=== PATIENT | female | born 1960 | race Caucasian/White ===

== ENCOUNTER → 2018-01-09 07:08 | Outpatient (CLI) | payer OTHER, SELFPAY ==
--- NOTE | 2018-01-09 07:12 | BI_ITS ---
MAMMOGRAPHY - BILATERAL SCREENING REASON FOR EXAM: Female, 57 years old. Routine annual screening examination. PERTINENT HISTORY: Non-contributory. TECHNIQUE: Digital bilateral breast tiffany (3D mammographic acquisition) in the CC and MLO projections. 2-D mediolateral oblique (MLO) and craniocaudad (CC) views of both breasts were obtained. CAD: Full Field Digital Mammography with Computer Added Detection was performed. COMPARISON: Comparison is made with prior study dated November 18, 2016. FINDINGS: Breast Composition: The breasts are heterogeneously dense, which may obscure small masses. There are no dominant masses or suspicious calcifications. No other significant abnormalities are identified. There has been no significant change since the prior study. BI/SCREENING MAMM (CAD), BILAT IMPRESSION: Stable bilateral screening mammogram. Yearly follow-up mammogram recommended. (A) ASSESSMENT CATEGORY: BIRADS Category 1: Negative. A letter regarding these results will be sent to the patient by the facility within 30 days. Approximately 10% of breast cancers are not detected by mammography. A normal mammogram should not delay biopsy of a clinically suspicious abnormality. [id number] Electronically Signed: Max Randhawa MD at 8:54 EST Tel [phone], Service support ,
[2018-01-15 11:46] LABS: HPV APTIMA, High Risk Negative (Negative)
== END ==
PROVIDERS: Referring Provider Nurse Practitioner Women's Health; Visit Provider Nurse Practitioner Women's Health
DX: Z12.4 Encounter for screening for malignant neoplasm of cervix (principal); Z12.31 Encounter for screening mammogram for malignant neoplasm of breast
CPT/HCPCS: 77063; 77067; 87624; 88175; G0145

== ENCOUNTER → 2020-01-16 16:17 | Outpatient (CLI) | payer BC, SELFPAY ==
[2020-01-08 13:41] VITALS: BMI 25.4
--- NOTE | 2020-01-16 16:18 | BI_ITS ---
MAMMOGRAPHY - BILATERAL SCREENING REASON FOR EXAM: Female, 59 years old. Routine annual screening examination. PERTINENT HISTORY: Non-contributory. TECHNIQUE: Digital bilateral breast rbuen (3D mammographic acquisition) in the CC and MLO projections. 2-D mediolateral oblique (MLO) and craniocaudad (CC) views of both breasts were obtained. CAD: Full Field Digital Mammography with Computer Added Detection was performed. COMPARISON: Comparison is made with prior study dated 01/09/2018 and 11/18/2016. FINDINGS: Breast Composition: The breasts are heterogeneously dense, which may obscure small masses. There are no dominant masses or suspicious calcifications. No other significant abnormalities are identified. There has been no significant change since the prior study. BI/SCREEN MAMM (CAD) W/RUBEN BILAT IMPRESSION: Stable bilateral screening mammogram. Yearly follow-up mammogram recommended. (A) ASSESSMENT CATEGORY: BIRADS Category 1: Negative. A letter regarding these results will be sent to the patient by the facility within 30 days. Approximately 10% of breast cancers are not detected by mammography. A normal mammogram should not delay biopsy of a clinically suspicious abnormality. [id number] Electronically Signed: Max Randhawa, at 8:10 EST , Service support ,
== END ==
PROVIDERS: PCP Internal Medicine; Referring Provider Nurse Practitioner Women's Health; Visit Provider Nurse Practitioner Women's Health
DX: Z12.31 Encounter for screening mammogram for malignant neoplasm of breast (principal)
CPT/HCPCS: 77063; 77067

== ENCOUNTER → 2021-01-27 07:35 | Outpatient (CLI) | payer BC, SELFPAY ==
--- NOTE | 2021-01-27 07:37 | BI_ITS ---
MAMMOGRAPHY - BILATERAL SCREENING REASON FOR EXAM: Female, 60 years old. Routine annual screening examination. PERTINENT HISTORY: Non-contributory. TECHNIQUE: Digital bilateral breast ruben (3D mammographic acquisition) in the CC and MLO projections. 2-D mediolateral oblique (MLO) and craniocaudad (CC) views of both breasts were obtained. CAD: Full Field Digital Mammography with Computer Added Detection was performed. COMPARISON: Comparison is made with prior study dated 01/16/2020 and 01/09/2018. FINDINGS: Breast Composition: The breasts are heterogeneously dense, which may obscure small masses. There are no dominant masses or suspicious calcifications. No other significant abnormalities are identified. There has been no significant change since the prior study. BI/SCRN MAMM (CAD)W/RUBEN BILAT IMPRESSION: Stable bilateral screening mammogram. Yearly follow-up mammogram recommended. (A) ASSESSMENT CATEGORY: BIRADS Category 1: Negative. A letter regarding these results will be sent to the patient by the facility within 30 days. Approximately 10% of breast cancers are not detected by mammography. A normal mammogram should not delay biopsy of a clinically suspicious abnormality. [id number] Electronically Signed: Max Randhawa MD at 8:51 EST , Service support ,
== END ==
PROVIDERS: PCP Internal Medicine; Referring Provider Nurse Practitioner Women's Health; Visit Provider Nurse Practitioner Women's Health
DX: Z12.31 Encounter for screening mammogram for malignant neoplasm of breast (principal)
CPT/HCPCS: 77063; 77067

== ENCOUNTER → 2022-04-13 | Outpatient (CLI) | payer BC, SELFPAY ==
[2022-04-20 20:28] LABS: HPV APTIMA, High Risk Negative (Negative)
== END | disposition home or self-care (01) ==
LOC: LABSPEC 10:44
PROVIDERS: PCP Internal Medicine; Referring Provider Nurse Practitioner Women's Health; Visit Provider Nurse Practitioner Women's Health
DX: Z12.4 Encounter for screening for malignant neoplasm of cervix (principal)
CPT/HCPCS: 87624; 88175; G0145

== ENCOUNTER → 2022-07-18 | Outpatient (CLI) | payer BC, SELFPAY ==
--- NOTE | 2022-07-18 07:49 | BI_ITS ---
MAMMOGRAPHY - BILATERAL SCREENING REASON FOR EXAM: Female, 62 years old. Routine annual screening examination. PERTINENT HISTORY: Non-contributory. TECHNIQUE: Digital bilateral breast ruben (3D mammographic acquisition) in the CC and MLO projections. 2-D mediolateral oblique (MLO) and craniocaudad (CC) views of both breasts were obtained. CAD: Full Field Digital Mammography with Computer Added Detection was performed. COMPARISON: Mammogram from January 27, 2021, January 16, 2020. FINDINGS: Breast Composition: The breasts are heterogeneously dense, which may obscure small masses. There are no dominant masses or suspicious calcifications. No other significant abnormalities are identified. There has been no significant change since the prior study. BI/SCRN MAMM (CAD)W/RUBEN BILAT IMPRESSION: Stable bilateral screening mammogram. Yearly follow-up mammogram recommended. (A) ASSESSMENT CATEGORY: BIRADS Category 1: Negative. A letter regarding these results will be sent to the patient by the facility within 30 days. Approximately 10% of breast cancers are not detected by mammography. A normal mammogram should not delay biopsy of a clinically suspicious abnormality. Electronically Signed: Kvng Langston MD at 14:31 EDT ,
== END | disposition home or self-care (01) ==
LOC: OPBI 07:48
PROVIDERS: PCP Internal Medicine; Referring Provider Obstetrics & Gynecology; Visit Provider Obstetrics & Gynecology
DX: Z12.31 Encounter for screening mammogram for malignant neoplasm of breast (principal)
CPT/HCPCS: 77063; 77067

== ENCOUNTER → 2024-05-21 | Outpatient (CLI) | payer BC, SELFPAY ==
--- NOTE | 2024-05-21 12:30 | BI_ITS ---
EXAM: PROCEDURE: MA Mammogram Digital Screen CLINICAL HISTORY: Screening COMPARISON: Mammogram study dated 07/18/2022 TECHNIQUE: A bilateral screening mammogram was obtained with MLO and CC views of both breasts with digital breast tomosynthesis. BREAST CANCER RISK ASSESSMENT: Does not appear to have been calculated. FINDINGS: No suspicious masses, suspicious calcifications or other suspicious mammogram findings are seen in either breast. Benign-appearing macrocalcifications are seen in the left breast. CONCLUSION: Right Breast: BI-RADS category 1, negative. Left Breast: BI-RADS category 2, benign findings Breast Composition: The breasts are heterogeneously dense, which may obscure small masses. Recommendation: Annual screening mammography Thank you for referring your patient to the [facility], if you have any questions, please call us at the performing site listed at the top of the report. [facility] , [facility] , [facility] and [facility] . Reading Location: [id number]
== END | disposition home or self-care (01) ==
LOC: OPBI 12:22
PROVIDERS: PCP Physician Assistant; Referring Provider Nurse Practitioner Women's Health; Visit Provider Nurse Practitioner Women's Health
DX: Z12.31 Encounter for screening mammogram for malignant neoplasm of breast (principal)
CPT/HCPCS: 77063; 77067

== ENCOUNTER 2024-08-15 05:25 | Day surgery (SDC) | payer BC, SELFPAY ==
--- NOTE | 2024-08-14 15:04 | PAT.ANESEVAL ---
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 When Was Last Pacemaker Check QUESTION #4 FULL TEXT: You/Your Family Experience fever (hyperthermia) with Anesthesia Last Oral Intake Last Oral intake: Last Oral Intake NPO since Meds taken in AM with sips of water? 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 - seam steamer: PONV - seam steamer Female Yes 08/13/24 13:58 HX of Motion Sickness No 08/13/24 13:58 HX of N/V After Surgery No 08/13/24 13:58 Non-Smoker Yes 08/13/24 13:58 Duration of Surgery greater No 08/13/24 13:58 than 60 minutes Number of Risk Factors 2 08/13/24 13:58 PONV Score Moderate Risk 08/13/24 13:58 Height & Weight Height & Weight: Anesthesia: Height & Weight Height 5 ft 8 in 05/21/24 13:08 Respiratory Assessment Respiratory Assessment - seam steamer: Respiratory Tract Infection Hx - seam steamer Hx Respiratory Tract Infection No 08/13/24 13:58 STOP Sleep Apnea STOP Sleep Apnea - seam steamer: STOP Sleep Apnea - seam steamer Hx Hypertension Yes: CONTROLLED WITH MEDS 08/13/24 13:58 Hx Sleep Apnea No 08/13/24 13:58 CPAP BIPAP Do you snore loudly (louder No 08/13/24 13:58 than talking or can be heard Do you often feel tired/ No 08/13/24 13:58 fatigued/ sleepy during daytime? Has anyone observed you stop No 08/13/24 13:58 breathing during sleep? STOP Results Negative 08/13/24 13:58 QUESTION #5 FULL TEXT : Do you snore loudly (louder than talking or can be heard through closed doors)? Tobacco Use History Tobacco Use History - seam steamer: Tobacco Use History - seam steamer Tobacco Use Smoking Status Never smoker 08/13/24 13:58 Hx Tobacco Use No 08/13/24 13:58 Years Smoking Packs Smoked per Day Smoking Cessation Date was within the last 15 years Hx Smoking Cessation Date Hx Smoking Cessation Counseling Hematologic Medial History Hematologic Hx - seam steamer: Hematologic Medical Hx - rn clinical documentation Hx of Blood Transfusion No 08/13/24 13:58 Hx of Transfusion in last 3 No 08/13/24 13:58 Months Date of Last Transfusion (if within last 3 months) Ever experience any problems No 08/13/24 13:58 with transfusion(s)? Specify any problems Hx of Preganancy in last 3 No 08/13/24 13:58 Months Nurse Filling Out Transfusion [id number] 08/13/24 13:58 & Questions: Date: 08/13/24 08/13/24 13:58 Time: 14:02 08/13/24 13:58 Patient unable to answer at this time (ie. confused, unrespo /Reproduction History /Reproductive History - seam steamer: /Reproductive Hx- seam steamer Hx Now No 08/13/24 13:58 Gestational Age (in weeks): EDC: Hx Hx Para Hx Section SAB No 08/13/24 13:58 [facility] Medical History (Updated 08/13/24 @ 14:05 by Shady Olivia) History of stress test RBBB Heart murmur History of abnormal cervical Pap smear Home Medications ?Medication ?Instructions ?Recorded ?Last Taken ?Type elderberry fruit 350 mg capsule 700 mg PO DAILY 04/13/22 Unknown History lactobacillus combination no.9 4 4,000 mmu cells PO DAILY 04/13/22 Unknown History billion cell capsule (Adult 50 Plus Probiotic) estradiol 0.01% (0.1 mg/gram) See Rx Instructions vaginal 05/21/24 Unknown Rx vaginal cream (Estrace) .COMPLEX #42.5 grams losartan 50 mg tablet 50 mg PO QHS 05/21/24 Unknown History ascorbic acid (vitamin C) 250 mg 500 mg PO QDAY 06/04/24 Unknown History tablet Allergy/AdvReac Type Severity Reaction Status Date / Time meperidine (From Demerol) AdvReac hives Verified 08/13/24 13:56 Sulfa (Sulfonamide AdvReac hives Verified 08/13/24 13:56 Antibiotics) Family History Mother Cancer pancreatic Father Cancer lymphoma Surgical History History of tonsillectomy Hx of appendectomy Hx of unilateral salpingectomy History of left oophorectomy Social History household members: spouse number of children: 3 current occupational status: retired history of recent travel: Yes sexually active: Yes Smoking Status: Never smoker alcohol intake: never substance use type: does not use what type of physical activity do you participate in: walking and bicycling seatbelt use: always do you feel safe at home: Yes additional social history: -mary Audit: Pertinent Findings Pertinent Findings EKG Perinent findings: May 31, 2023. Normal sinus rhythm. Right bundle branch block. No change from 2019. Recommendation Anesthesia Recommendation Anesthesia recommendation: OPTIMIZED for anesthesia
[2024-08-15] VITALS (7 sets, daily range): BP systolic 101–143; BP diastolic 50–67; PULSE 63–70; RESP 16–18; TEMP 36.1–36.7; O2SAT 100; BMI 26.6
--- OUTSIDE RECORDS SUMMARY | 2024-08-15 05:28 | XMS RPT_ITS | CCD ---
Author Organization [facility] Care Team Providers Care Weaving Instructor Name Role Phone Graciela Rebollar NP Unavailable Geovanni Paez Primary Care Provider [phone] Geovanni Paez Primary Care Provider Alexis Foreman Primary Care Provider [phone] Dr. Geovanni Paez Primary Care Provider Dr. Geovanni Paez Referring Provider RINA Rebollar NP Attending Provider Dr. Geovanni Paez Primary Care Provider Dr. Geovanni Paez Referring Provider RINA Rebollar NP Attending Provider Alexis Morgan Primary Care Provider Fely Rice Primary Care Provider Fely Rice Primary Care Provider [phone] SABINO, SILVIA L Attending Unavailable BA, FELY Primary Care Unavailable SABINO, SILVIA L Referring Unavailable BA, FELY Primary Care Unavailable SABINO, SILVIA L Attending Unavailable SABINO, SILVIA L Referring Unavailable SABINO, SILVIA L Attending Unavailable BA, FELY Primary Care Unavailable SABINO, SILVIA L Referring Unavailable SABINO, SILVIA L Attending Unavailable BA, FELY Primary Care Unavailable SABINO, SILVIA L Referring Unavailable SABINO, SILVIA L Attending Unavailable BA, FELY Primary Care Unavailable SABINO, SILVIA L Referring Unavailable SABINO, SILVIA L Attending Unavailable BA, FELY Primary Care Unavailable SABINO, SILVIA L Referring Unavailable BA, FELY Primary Care Unavailable SABINO, SILVIA L Attending Unavailable SABINO, SILVIA L Referring Unavailable SABINO, SILVIA L Referring Unavailable BA, FELY Primary Care Unavailable SABINO, SILVIA L Attending Unavailable SABINO, SILVIA L Referring Unavailable BA, FELY Primary Care Unavailable SABINO, SILVIA L Attending Unavailable BA, FELY Primary Care Unavailable SABINO, SILVIA L Admitting Unavailable SABINO, SILVIA L Attending Unavailable SABINO, SILVIA L Referring Unavailable TYRONE, HI Attending Unavailable TYRONE, HI Referring Unavailable BA, FELY Primary Care Unavailable BA, FELY Primary Care Unavailable SABINO, SILVIA L Attending Unavailable SABINO, SILVIA L Referring Unavailable HANS, ALEXIS O Primary Care Unavailable SABINO, SILVIA L Attending Unavailable SABINO, SILVIA L Referring Unavailable HANS, ALEXIS O Primary Care Unavailable TYRONE, HI Attending Unavailable TYRONE, HI Referring Unavailable HANS, ALEXIS O Primary Care Unavailable TYRONE, HI Attending Unavailable TYRONE, HI Referring Unavailable HANS, ALEXIS O Primary Care Unavailable TYRONE, HI Attending Unavailable SELF, SELF Referring Unavailable TYRONE, HI Attending Unavailable SELF, SELF Referring Unavailable BA, FELY Primary Care Unavailable TYRONE, HI Referring Unavailable TYRONE, HI Attending Unavailable FELY BA Primary Care Unavailable Fely Ba PA-C Primary Care Provid er FELY BA Primary Care Unavaila CONSUELO Diallo Attending Unavailable Smooth CARPENTER PACKING-C, Graciela Attending Provider Smooth NANCECGraciela Referring Provider Dr. Fely Ba PA-C Primary Care Provider Dr. Geovanni Paez MD Referring Provider [phone] Fely Ba Primary Care Unavailable Kalia Santos Attending Unavailable Geovanni Paez Referring Unavailable Fely Ba Primary Care Unavailable Smooth CARPENTER PACKING, Graciela Attending Unavailable Geovanni Paez Referring Unavailable [place] CARPENTER PACKING, Graciela Referring Unavailable Smooth CARPENTER PACKING, Graciela Attending Unavailable Fely Ba Primary Care Unavailable Fely Ba Primary Care Unavailable Kalia Santos Attending Unavailable Allergies Allergy Classification Reported Allergen(s) Allergy Type Date of Onset Reaction(s) Facility (4 sources) sulfamethoxazole / trimethoprim drug allergy 11-19-19 17 [facility] (19 sources) Meperidine Drug Allergy 01-03-20 19 [facility] (9 sources) Sulfonamides (Antibiotic) Propensity to adverse reactions to drug 01-03-20 19 [facility] (13 sources) Sulfamethoxazole / Trimethoprim Drug Allergy 11-19-19 17 [facility] (4 sources) Sulfonamides (Antibiotic); Translations: [SULFA (SULFONAMIDE ANTIBIOTICS)] Propensity to adverse reactions 04-13-19 23 [facility] (8 sources) Sulfonamides (Antibiotic) Propensity to adverse reactions to drug 01-03-20 19 [facility] (4 sources) avocado oil Drug Allergy 05-31-19 24 Nausea and Vomiting [facility] (1 source) Meperidine Drug Allergy 05-22-19 [facility] (1 source) Sulfonamides (Antibiotic) Drug allergy (disorder) 05-22-19 [facility] Medications Current Medications Medication Drug Class(es) Dates Sig (Normalized) Sig (Original) acetaminophen 325 mg / HYDROcodone bitartrate 5 mg oral tablet (11 sources) Opioid Agonist Start: 06-28-2023 take 1-2 tablets by mouth every four to six hours as needed for pain hydroCODone-acetam inophen 5-325 MG tablet Indications: S/P right knee arthroscopy 1-2 tabs PO q4-6 hours PRN pain 30 tablet 06/28/2023 Active Start: 06-28-2023 End: 06-28-2023 take 1-2 tablets by mouth every four hours as needed 1-2 tablet, Oral, EVERY 4 HOURS NEEDED, Starting on Mon06/28/23 at 1030, Until Mon06/28/23 at 1529, Moderate Pain, Post-op/Post-Proc Start: 03-14-2019 take 1-2 tablets by mouth every four to six hours as needed for pain hydroCODone-acetaminophen 5-325 MG Tab tablet Indications: S/P left knee arthroscopy 1-2 tabs PO q4-6 hours PRN pain 40 tablet 03/14/2019 Active Start: 03-14-2019 End: 03-14-2019 take 1-2 tablets by mouth every four hours as needed hydroCODone-acetaminophen (NORCO) 5-325 MG per tablet 1-2 tablet Ascorbic Acid (3 sources) Vitamin C Ascorbic Acid (VITAMIN C PO) Take by mouth daily. Active calcium carbonate 1500 mg oral tablet (6 sources) Start: 04-13-2022 take 1 tablet by mouth once daily Calcium Carbonate (Calcium 600) 600 mg calcium (1,500 mg) tablet Active 600 mg PO DAILY April 13, 2022 1:00am Start: 01-09-2018 End: 04-13-2022 take 1 tablet by mouth twice daily Calcium Carbonate (Antacid (Calcium Carbonate)) 200 mg calcium (500 mg) tablet,chewable Discontinued 200 mg PO TWICE A DAY January 09, 2018 1:00am April 13, 2022 10:20am calcium carbonate 1250 mg / cholecalciferol 200 unt oral tablet (12 sources) Vitamin D calcium-vitamin D 500-200 MG-UNIT Tab tablet Take by mouth daily. Active ciprofloxacin 3 mg/ml / dexamethasone 1 mg/ml otic suspension (1 source) Corticosteroid, Quinolone Antimicrobial Start: 03-06-2024 End: 03-13-2024 ciprofloxacin-dexamethaso ne (Ciprodex) otic suspension Indications: Acute swimmer's ear of left side Administer 4 drops into the left ear 2 times a day for 7 days. 7.5 mL 03/06/2024 03/13/2024 Active ELDERBERRY FRUIT (3 sources) Start: 04-13-2022 Elderberry Fruit 350 mg capsule Active mg PO April 13, 2022 1:00am Start: 04-13-2022 Elderberry Fru it Active MG PO April 13, 2022 1:00am Start: 04-13-2022 Elderberry Fru it Active MG PO April 13, 2022 12:00am Elderberry preparation (3 sources) ELDERBERRY PO Ta ke by mouth daily. Active estradiol 0.1 mg/ml vaginal cream (10 sources) Estrogen Start: 01-13-2021 End: 05-21-2024 Estradiol (Estrace) 0.01 % (0.1 mg/gram) cream Active 0 VAGINAL .COMPLEX 42.5 May 21, 2024 1:10pm pea sized amount VAGINAL 2-3 times a week; Start: 01-13-2021 End: 03-03-2022 Estradiol (Estrace) 0.01 % ( 0.1 mg/gram) cream Active 0 VAGINAL .COMPLEX 42.5 March 03, 2022 12:35pm pea sized amount VAGINAL 2-3 times a week; Start: 01-08-2020 End: 01-13-2021 Estradiol (Estrace) 0.01 % ( 0.1 mg/gram) cream Discontinued 0 VAGINAL .COMPLEX 42.5 January 08, 2020 1:00am January 13, 2021 10:52am pea sized amount VAGINAL every other day X 4 weeks then twice a week; Start: 01-08-2020 End: 01-13-2021 Estradiol (Estrace) 0.01 % ( 0.1 mg/gram) cream Discontinued 0 VAGINAL .COMPLEX 42.5 January 08, 2020 1:00am January 13, 2021 10:52am pea sized amount VAGINAL every other day X 4 weeks then twice a week; hydrocortisone 10 mg/ml / neomycin 3.5 mg/ml / polymyxin b [id number] unt/ml otic suspension (11 sources) Aminoglycoside Antibacterial, Polymyxin-class Antibacterial, Corticosteroid Start: 03-07-2019 wbeyxauw-bcieznuru-nahfvsklf isone [id number] Suspension Indications: Acute otitis externa of right ear, unspecified type Place 4 drops in right ear 3 times daily. 1 Bottle 03/07/2019 Active Lactobacillus Combination No.9 (Adult 50 Plus Probiotic) 4 billion cell capsule (3 sources) Start: 04-13-2022 take 4 capsules by mouth once daily Lactobacillus Combination No.9 (Adult 50 Plus Probiotic) 4 billion cell capsule Active 4000 NMA PO DAILY April 13, 2022 1:00am administer with a meal Start: 04-13-2022 take 4 capsules by m outh once daily Lactobacillus Combination No.9 (Adult 50 Plus Probiotic) 4 billion cell capsule Active 4000 MMU CELLS PO DAILY April 13, 2022 1:00am administer with a meal Start: 04-13-2022 take 4 capsules by m outh once daily Lactobacillus Combination No.9 (Adult 50 Plus Probiotic) 4 billion cell capsule Active 4000 MMU CELLS PO DAILY April 13, 2022 12:00am administer with a meal losartan potassium 50 mg oral tablet (1 source) Angiotensin 2 Receptor Shakir Start: 05-21-2024 take 1 tablet by mouth once daily Losartan 50 mg tablet Active 50 mg PO daily May 21, 2024 12:00am Magnesium (3 sources) MAGNESIUM PO Flash e by mouth daily. Active Melatonin (8 sources) MELATONIN PO Flash e by mouth. Active MELATONIN PO Flash e by mouth. 0 Active Completed/Discontinued Medications Medication Drug Class(es) Dates Sig (Normalized) Sig (Original) bupivacaine hydrochloride 5 mg/ml injectable solution (1 source) Amide Local Anesthetic Start: 03-14-2019 End: 03-14-2019 bupivacaine (MARCAINE) 0.5 % injection calcium (10 sources) Phosphate Binder, Calcium Start: 11-18-2016 End: 03-14-2019 CALCIUM PO calcium CALCIUM 250 MG CAPS CALCIUM [id number] Aster Alvarez MD 11-18-2016 [facility] ([id number]) 0 11/18/2016 03/14/2019 Discontinued (Medication Reconciliation (suppress cancel msg)) Start: 11-18-2016 CALCIUM PO aysha cium CALCIUM 250 MG CAPS CALCIUM [id number] Aster Alvarez MD 11-18-2016 [facility] ([id number]) 0 11/18/2016 Active Start: 11-18-2016 CALCIUM 250 MG CAPS CALCIUM [id number] Aster Alvarez MD Start: 11-18-2016 CALCIUM 250 MG CAPS CALCIUM [id number] Aster Alvarez MD calcium chloride 0.0014 meq/ml / potassium chloride 0.004 meq/ml / sodium chloride 0.103 meq/ml / sodium lactate 0.028 meq/ml injectable solution (2 sources) Start: 06-28-2023 End: 06-28-2023 Intravenous, at 75 mL/hr, CONTINUOUS, Starting on Mon06/28/23 at 0915, Until Mon06/28/23 at 1529, Pre-op/Pre-Proc Start: 03-14-2019 End: 03-14-2019 lactated ringers IV solution EPINEPHrine PF (ADRENALIN) 1 MG/ML 1 mg in lactated ringers 5,000 mL irrigation solution (1 source) Start: 03-14-2019 End: 03-14-2019 EPINEPHrine PF (ADRENALIN) 1 MG/ML 1 mg in lactated ringers 5,000 mL irrigation solution 10 ml lidocaine hydrochloride 10 mg/ml injection (1 source) Antiarrhythmic, Amide Local Anesthetic Start: 03-14-2019 End: 03-14-2019 lidocaine (XYLOCAINE) 10 mg/mL injection Multiple Vitamin (MULTI-VITAMIN) Tab (2 sources) Start: 12-22-2009 End: 03-07-2019 Multiple Vitamin (MULTI-VITAMIN) Tab Take by mouth. 0 12/22/2009 03/07/2019 Discontinued MULTIPLE VITAMINS-MINERALS (4 sources) Start: 11-18-2016 MULTIVITAMIN WOMEN 50+ TABS MULTIPLE VITAMINS-MINERALS [id number] Aster Alvarez MD Drug Treatment Unknown - unknown (1 source) No information available. 2 ml ondansetron 2 mg/ml injection (2 sources) Serotonin-3 Receptor Antagonist Start: 06-28-2023 End: 06-28-2023 take 4 mg intravenously every four hours as needed 4 mg, Intravenous, EVERY 4 HOURS NEEDED, Starting on Mon06/28/23 at 1030, Until Mon06/28/23 at 1529, Nausea / Vomiting, Post-op/Post-Proc Start: 03-14-2019 End: 03-14-2019 take 4 mg intravenous route every four hours as needed ondansetron 4mg/2ml (ZOFRAN) injection 4 mg Problems Active Problems Problem Classification Problem Date Documented Date Episodic/Chronic Joint disorders and dislocations; trauma-related (2 sources) Acute meniscal tear, medial; Translations: [Current tear of medial cartilage AND/OR meniscus of knee] Episodic Joint disorders and dislocations; trauma-related (4 sources) Tear of medial meniscus of knee; Translations: [Other tear of medial meniscus, current injury, right knee, initial encounter] Onset: 06-12-2023 04-24-2023 Episodic Menopausal disorders (7 sources) Atrophic vaginitis; Translations: [Postmenopausal atrophic vaginitis] Onset: 05-21-2024 04-13-2022 Chronic Comment on above: controlled with vagi nal estrogen cream Osteoarthritis (4 sources) Osteoarthritis of right knee joint; Translations: [Unilateral primary osteoarthritis, right knee] Onset: 06-12-2023 04-24-2023 Chronic Other ear and sense organ disorders (1 source) Impacted cerumen in left ear; Translations: [Impacted cerumen, left ear] 03-06-2024 Episodic Other ear and sense organ disorders (1 source) Acute otitis externa; Translations: [Swimmer's ear, left ear] 03-06-2024 Episodic Other ear and sense organ disorders (2 sources) Impacted cerumen, left ear; Translations: [Impacted cerumen, left ear] Onset: 03-06-2024 Episodic Other ear and sense organ disorders (2 sources) Swimmer's ear, left ear; Translations: [Swimmer's ear, left ear] Onset: 03-06-2024 Episodic Other ear and sense organ disorders (1 source) Acute otitis externa of right ear; Translations: [Acute otitis externa of right ear, unspecified type] Other ear and sense organ disorders (1 source) Impacted cerumen in left ear; Translations: [Impacted cerumen of left ear] Other non-traumatic joint disorders (2 sources) Arthropathy; Translations: [Other specified joint disorders, unspecified joint] Chronic Other non-traumatic joint disorders (1 source) Knee pain; Translations: [Acute pain of left knee] Episodic Other screening for suspected conditions (not mental disorders or infectious disease) (1 source) Encounter for screening mammogram for malignant neoplasm of breast; Translations: [Encounter for screening mammogram for malignant neoplasm of breast] Onset: 05-27-2024 Episodic Residual codes; unclassified (3 sources) History of arthroscopy of knee joint; Translations: [S/P left knee arthroscopy] Episodic Residual codes; unclassified (3 sources) History of arthroscopy of knee joint; Translations: [Other specified postprocedural states] 06-19-2023 Episodic Residual codes; unclassified (4 sources) Other specified postprocedural states; Translations: [Other specified postprocedural states] Onset: 07-17-2023 Episodic Unclassified (4 sources) Screening for malignant neoplasm of cervix ; Translations: [Encounter for screening for malignant neoplasm of cervix] Onset: 11-18-2016 11-18-2016 Unclassified (4 sources) Gynecologic examination ; Translations: [Encounter for gynecological examination (general) (routine) without abnormal findings] Onset: 11-18-2016 11-18-2016 Unclassified (4 sources) Screening mammography ; Translations: [Encounter for screening mammogram for malignant neoplasm of breast] Onset: 10-06-2016 10-06-2016 Unclassified (1 source) Preprocedural examination done; Translations: [Preoperative examination] Unclassified (1 source) Patient encounter status; Translations: [Routine general medical examination at a health care facility] Unclassified (1 source) Acute tear of medial meniscus of left knee; Translations: [Acute medial meniscus tear of left knee, initial encounter] Unclassified (1 source) Personal history of colon polyps, unspecified; Translations: [Personal history of colon polyps, unspecified] Onset: 07-08-2024 Past or Other Problems Problem Classification Problem Date Documented Date Episodic/Chronic Immunizations and screening for infectious disease (4 sources) Encounter for screening for human papillomavirus (HPV); Translations: [Encounter for screening for human papillomavirus (HPV)] Onset: 11-18-2016 11-18-2016 Episodic Other non-traumatic joint disorders (3 sources) Pain in right knee; Translations: [Pain in joint, lower leg] Onset: 03-10-2023 03-08-2023 Episodic Sprains and strains (4 sources) Sprain of right knee; Translations: [Sprain of unspecified site of right knee, initial encounter] Onset: 04-12-2023 03-10-2023 Episodic Results Test Name Value Interpretation Reference Range Facility Gastroenterology Visit Repor ton 06-04-2024 Gastroenterology Visit Report [facility] [address] [place] [address] OFFICE VISIT Date of Service: 06/04/24 MR#: [id number] Acct: [id number] Name: MAURICE AVILEZ Rep #: [id number] : 1960 Provider: Kalia Santos DO Age/Sex: 64/F Location: [facility] Status: Signed Intake Vital Signs 04/13/22 09:21 05/21/24 13:08 Height 5 ft 8 in 5 ft 8 in Intake Visit Reasons: Pre Colon Allergies meperidine (From Demerol) Adverse Reaction (Verified 05/21/24 13:09) hives Sulfa (Sulfonamide Antibiotics) Adverse Reaction (Verified 05/21/24 13:09) hives Medications ???Medication ???Instructions ???Recorded ???Confirmed ???Type calcium carbonate (Calcium 600) 600 mg PO DAILY 04/13/22 06/04/24 History elderberry fruit 350 mg capsule mg PO 04/13/22 06/04/24 History lactobacillus combination no.9 4 4,000 mmu cells PO DAILY 04/13/22 06/04/24 History billion cell capsule (Adult 50 Plus Probiotic) estradiol 0.01% (0.1 mg/gram) See Rx Instructions vaginal 06/04/24 Rx vaginal cream (Estrace) .COMPLEX #42.5 grams losartan 50 mg tablet 50 mg PO QDAY 05/21/24 06/04/24 Hi story ascorbic acid (vitamin C) 250 mg 500 mg PO QDAY 06/04/24 06/04/24 H istory tablet Nurse's Note: Pt was scheduled for colonoscopy on 08.15.24 at the end of their appt today. Reviewed prep instructions and which medications to hold prior to procedure with pt in office. A paper copy of miralax prep instructions were given to pt. Pt denies any questions or concerns at this time. [facility] Medical History (Updated 06/04/24 @ 11:[address] Motta Friend, DO) History of abnormal cervical Pap smear Surgical History History of tonsillectomy Hx of appendectomy Hx of unilateral salpingectomy History of left oophorectomy Family History Mother Cancer pancreatic Father Cancer lymphoma Social History household members: spouse number of children: 3 current occupational status: retired history of recent travel: Yes sexually active: Yes Smoking Status: Never smoker alcohol intake: never substance use type: does not use what type of physical activity do you participate in: walking and bicycling seatbelt use: always do you feel safe at home: Yes additional social history: -mary SLY HPI Details: MAURICE AVILEZ, is a 64 F who presents to the office today for initial consult. Her only PMH is stage 1 hypertension. This is controlled with medication. She wants to schedule a colonoscopy. Her las colonoscopy was in 2019 at [facility]. She uses probiotics on a daily bases to help with her bowel movements. *BGI established 06.04.24 pt report she is due for a colonoscopy; last scope was 5-6 years ago. Pt reports that since going through menopause she has had irregular bowel movements, pt reports a bm every other day or will sometimes skip two days. Pt reports abdominal cramping began last week. ROS Const Constitutional: No fatigue, fever(s) or weight change ENT ENT: No difficulty swallowing Gastro GI: Positive for abdominal pain, bloating, constipation and excessive flatus; No belching, change in bowel habits, change in stool character, coffee ground emesis, cramping, diarrhea, heartburn, difficulty swallowing, feeling full early, incontinent of stools, Vomiting blood/hematemesis, Blood in stool, loose stools, Black,tarry stools, nausea/dyspepsia, pain with swallowing, vomiting or other Musc Musculoskeletal: Positive for muscle cramps; No joint pain Skin Skin: No yellowing of the eye or itchy eyes Psych Psychiatric: No anxiety and No depression Endo Endocrine: No fatigue or weight change Aller/Imm Allergy/Immunologic: No itchy eyes Maged/Lymp Hematologic/Lymphatic: No easy bleeding or easy bruising Exam Const General: cooperative, healthy appearing, comfortable and no acute distress Nutritional Appearance: average body habitus and well nourished [facility] Head: normal to inspection Ears: hearing grossly normal bilaterally Nose: external nose normal Eyes Eyelids: eyelids normal Sclera: sclerae normal Neck Neck: normal visual inspection Chest Chest palpation inspection: normal inspection of the chest Resp Effort Inspection: normal respiratory effort Auscultation: Bilateral: Clear to Auscultation Cardio Palpation: normal PMI Rate: regular rate Rhythm: regular rhythm GI Inspection: normal to inspection Auscultation: normal bowel sounds Percussion: normal to percussion Palpation: no hepatosplenomegaly Assessment and Plan Assessment and Plan (1) Personal history of colonic polyps: Status: Acute Plan: She will undergo a surve (more content not included)... Normal [facility] Breast imaging reportOrdered By: Jesusita Turpin on 05-22-2024 Study report [facility] Imaging Services [address] [place] [address] SCRN MAMM (CAD)W/RUBEN BILAT MR#: [id number] Acct: [id number] Name: MAURICE AVILEZ Priscilla Rep #: [id number] : 1960 F 64 From: Bronson Turpin DO PCP: Fely Ba PA-C Status: REG CLI Study:SCRN MAMM (CAD)W/RUBEN BILAT Date of Exa m: 05/21/24 Exam# [id number] Ordering Dr: Graciela Rebollar NP EXAM: PROCEDURE: MA Mammogram Digital Screen CLINICAL HISTORY: Screening COMPARISON: Mammogram study dated 07/18/2022 TECHNIQUE: A bilateral screening mammogram was obtained with MLO and CC views of both breasts with digital breast tomosynthesis. BREAST CANCER RISK ASSESSMENT: Does not appear to have been calculated. FINDINGS: No suspicious masses, suspicious calcifications or other suspicious mammogram findings are seen in either breast. Benign-appearing macrocalcifications are seen in the left breast. CONCLUSION: Right Breast: BI-RADS category 1, negative. Left Breast: BI-RADS category 2, benign findings Breast Composition: The breasts are heterogeneously dense, which may obscure small masses. Recommendation: Annual screening mammography Thank you for referring your patient to the [facility], if you have any questions, please call us at the performing site listed at the top of the report. [facility] , [facility] , [facility] and [facility] . Reading Location: [id number] CC: RINA Rebollar; CHADWICK Ba ~ Dairy Helper: Signed [facility] [employer] Office Visit Reporton 05-21-2024 Bro[facility] [employer] Office Visit Report [facility] [address], [address] [place] [address] OFFICE VISIT Date of Service: 05/21/24 MR#: [id number] Acct: [id number] Name: MAURICE AVILEZ Rep #: [id number] : 1960 Provider: RINA dang Age/Sex: 64/F [place] [facility] [place]: Signed Intake Vital Signs 04/13/22 09:21 05/21/24 13:02 05/21/24 13:08 Height 5 ft 8 in 5 ft 8 in 5 ft 8 in Weight: 172 lb 2 oz BMI 26.2 BP 136/70 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) Chief Complaint: Annual Information And Referral Director Required: No Is patient in pain?: No Allergies meperidine (From Demerol) Adverse Reaction (Verified 05/21/24 13:09) hives Sulfa (Sulfonamide Antibiotics) Adverse Reaction (Verified 05/21/24 13:09) hives Medications ???Medication ???Instructions ???Recorded ???Confirmed ???Type calcium carbonate (Calcium 600) 600 mg PO DAILY 04/13/22 05/21/24 History elderberry fruit 350 mg capsule mg PO 04/13/22 05/21/24 History lactobacillus combination no.9 4 4,000 mmu cells PO DAILY 04/13/22 05/21/24 History billion cell capsule (Adult 50 Plus Probiotic) estradiol 0.01% (0.1 mg/gram) See Rx Instructions vaginal 05/21/24 Rx vaginal cream (Estrace) .COMPLEX #42.5 grams losartan 50 mg tablet 50 mg PO QDAY 05/21/24 05/21/24 Hi story Is last menstrual period known: No Post menopausal: Yes Patient : No : No PFSH Medical History History of abnormal cervical Pap smear Surgical History History of tonsillectomy Hx of appendectomy Hx of unilateral salpingectomy History of left oophorectomy Family History Mother Cancer pancreatic Father Cancer lymphoma Social History household members: spouse number of children: 3 current occupational status: retired history of recent travel: Yes sexually active: Yes Smoking Status: Never smoker alcohol intake: never substance use type: does not use what type of physical activity do you participate in: walking and bicycling seatbelt use: always do you feel safe at home: Yes additional social history: -mary History 3 Elective abortions Hx Para 3 Spontaneous abortions Hx # Term Pregnancies Ectopic pregnancies Hx # Pregnancies Multiple births # of living children Past Pregnancies Del. Date Name GA/Weeks Outcome Route Bth Weight [facility] 1981 Jacquelin Unknown 1984 Fani Unknown 1986 Nabila HPI Encounter for routine gynecological examination Details: MAURICE AVILEZ is a 64 year old who presents for annual exam. Denies concerns. Needs refill estradiol cream, uses 2 times a week Last PAP: 2022 History of abnormal PAP: remote abnormal Last mammogram: today History of abnormal mammogram: no Colon cancer screening: scheduled Other preventative health care screenings:[place]/Sh ilo Female Reproductive History Questions: metorrhagia: No, sexually active: Yes, dyspareunia: No and PCB: No Menopausal Treatment: Yes Vaginal Estrogen ROS Const Constitutional: Denies fatigue, weight gain or weight loss Cardio Card: Denies chest pain Resp Resp: Denies cough or dyspnea on exertion GI GI: Denies abdominal pain, bloating, change in stool character, constipation or vomiting : Reports as per HPI; Denies difficulty voiding, pelvic pain, urinary frequency, urinary incontinence, urinary urgency, vaginal discharge or vaginal pruritus Exam Const General: cooperative, healthy appearing, no acute distress and well developed Orientation: alert, oriented to person and oriented to place HENVT Head: normal to inspection Neck Neck: normal visual inspection Thyroid: thyroid normal Lymphatic: no lymphadenopathy noted Chest Breast inspection: normal inspection of the breasts and normal inspection of the axillae Breast palpation: normal palpation of the breasts, normal palpation of the axillae and no axillary lymphadenopathy Resp Effort Inspection: normal respiratory effort GI Palpation: soft, no masses and nontender Rectal Exam: deferred External Female Exam: normal external appearance and normal appearance of the urethra Urethra: normal appearance of the urethra and normal palpation Speculum Exam - Vagina: normal appearance of the vagina and normal vaginal discharge Speculum Exam - Cervix: normal appearance of the cervix Bimanual Exam- Vagina Uterus: normal bimanual exam, uterine size normal, uterine shape normal and non-tender Bimanual Exam- Adnexa, other: normal adnexae, n (more content not included)... Normal [facility] SCRN MAMM (CAD)W/RUBEN BILATo n 05-21-2024 SCRN MAMM (CAD)W/RUBEN BILAT [facility] Imaging Services [address] [place] [address] SCRN MAMM (CAD)W/RUBEN BILAT MR#: [id number] Acct: [id number] Name: MAURICE AVILEZ Rep #: [id number] : 1960 F 64 From: Jesusita Meier PCP: Fely Ba PA-C Status: REG CLI Study: SCRN MAMM (CAD)W/RUBEN BILAT Date of Exam: 04/28 07/21 Exam# [id number] Ordering Dr: Graciela Rebollar NP [employer] EXAM: PROCEDURE: MA Mammogram Digital Screen CLINICAL HISTORY: Screening COMPARISON: Mammogram study dated 07/18/2022 TECHNIQUE: A bilateral screening mammogram was obtained with MLO and CC views of both breasts with digital breast tomosynthesis. BREAST CANCER RISK ASSESSMENT: Does not appear to have been calculated. FINDINGS: No suspicious masses, suspicious calcifications or other suspicious mammogram findings are seen in either breast. Benign-appearing macrocalcifications are seen in the left breast. CONCLUSION: Right Breast: BI-RADS category 1, negative. Left Breast: BI-RADS category 2, benign findings Breast Composition: The breasts are heterogeneously dense, which may obscure small masses. Recommendation: Annual screening mammography Thank you for referring your patient to the [facility], if you have any questions, please call us at the performing site listed at the top of the report. [facility] , [facility] , [facility] and [facility] . Reading Location: [id number] CC: RINA Rebollar; CHADWICK Ba Dairy Helper: Signed [facility] Ear Cerumen Removalon 2024 SYEDA Bhandari 03/06/2024 11:29 AM Ear Cerumen Removal Performed by: SYEDA Bhandari Authorized by: SYEDA Bhandari Consent: Consent obtained: Verbal Consent given by: Patient Risks, benefits, and alternatives were discussed: yes Risks discussed: Infection, bleeding, pain, TM perforation, incomplete removal and dizziness Alternatives discussed: No treatment Axtell protocol: Procedure explained and questions answered to patient or proxy's satisfaction: yes Relevant documents present and verified: yes Test results available: no Imaging studies available: no Required blood products, implants, devices, and special equipment available: no Site/side marked: no Immediately prior to procedure, a time out was called: no Patient identity confirmed: Verbally with patient Procedure details: Location: L ear Procedure type: irrigation Procedure outcomes: cerumen removed Post-procedure details: Inspection: No bleeding, TM intact and macerated skin Hearing quality: Improved Procedure completion: Tolerated well, no immediate complications [facility] Work Phone: [facility] Work Phone: MR Knee - right WO contrasto n 04-12-2023 IMPRESSION: 1. There is an oblique longitudinal undersurface tear in the body of the medial meniscus seen on coronal image 21. Mild reactive soft tissue inflammation around the MCL seen. Medial compartment cartilage appears maintained. Mild subcutaneous swelling over the medial knee also seen. 2. Moderate joint effusion seen. 3. Subtle areas of intermediate grade chondral fissuring in the medial, lateral, and central aspects of the patella seen. RADIOLOGY EXAM: MRI KNEE RIGHT WITHOUT CONTRAST REASON FOR EXAM: Knee pain x3 months TECHNIQUE: Multiplanar, multisequence imaging of the right knee without IV contrast. COMPARISON: None. FINDINGS: There is an oblique longitudinal undersurface tear in the body of the medial meniscus seen on coronal image 21. Mild reactive soft tissue inflammation around the MCL seen. Medial compartment cartilage appears maintained. Mild subcutaneous swelling over the medial knee also seen. Moderate joint effusion seen. ACL and PCL are intact. Quadriceps and patellar tendon are intact. Lateral meniscus and lateral compartment cartilage appear maintained. LCL complex appears intact. No fracture or stress response. Subtle areas of intermediate grade chondral fissuring in the medial, lateral, and central aspects of the patella seen. RADIOLOGY Wolf Bolanos MD - 04/12/2023 EXAM: MRI KNEE RIGHT WITHOUT CONTRAST REASON FOR EXAM: Knee pain x3 months TECHNIQUE: Multiplanar, multisequence imaging of the right knee without IV contrast. COMPARISON: None. FINDINGS: There is an oblique longitudinal undersurface tear in the body of the medial meniscus seen on coronal image 21. Mild reactive soft tissue inflammation around the MCL seen. Medial compartment cartilage appears maintained. Mild subcutaneous swelling over the medial knee also seen. Moderate joint effusion seen. ACL and PCL are intact. Quadriceps and patellar tendon are intact. Lateral meniscus and lateral compartment cartilage appear maintained. LCL complex appears intact. No fracture or stress response. Subtle areas of intermediate grade chondral fissuring in the medial, lateral, and central aspects of the patella seen. IMPRESSION IMPRESSION: 1. There is an oblique longitudinal undersurface tear in the body of the medial meniscus seen on coronal image 21. Mild reactive soft tissue inflammation around the MCL seen. Medial compartment cartilage appears maintained. Mild subcutaneous swelling over the medial knee also seen. 2. Moderate joint effusion seen. 3. Subtle areas of intermediate grade chondral fissuring in the medial, lateral, and central aspects of the patella seen. [facility] Radiology Study observation (narrative) [facility] MR Knee - right WO contrastO rdered By: Wolf Bolanos on 04-12-[address] [facility] [employer] Work Phone: MRI KNEE RIGHT WITHOUT CONTR Kat 04-12-2023 MRI KNEE RIGHT WITHOUT CONTRAST EXAM: MRI KNEE RIGHT WITHOUT CONTRAST REASON FOR EXAM: Knee pain x3 months TECHNIQUE: Multiplanar, multisequence imaging of the right knee without IV contrast. COMPARISON: None. FINDINGS: There is an oblique longitudinal undersurface tear in the body of the medial meniscus seen on coronal image 21. Mild reactive soft tissue inflammation around the MCL seen. Medial compartment cartilage appears maintained. Mild subcutaneous swelling over the medial knee also seen. Moderate joint effusion seen. ACL and PCL are intact. Quadriceps and patellar tendon are intact. Lateral meniscus and lateral compartment cartilage appear maintained. LCL complex appears intact. No fracture or stress response. Subtle areas of intermediate grade chondral fissuring in the medial, lateral, and central aspects of the patella seen. IMPRESSION: 1. There is an oblique longitudinal undersurface tear in the body of the medial meniscus seen on coronal image 21. Mild reactive soft tissue inflammation around the MCL seen. Medial compartment cartilage appears maintained. Mild subcutaneous swelling over the medial knee also seen. 2. Moderate joint effusion seen. 3. Subtle areas of intermediate grade chondral fissuring in the medial, lateral, and central aspects of the patella seen. Normal [facility] XR KNEE RIGHT 4+ VIEWSon XR KNEE RIGHT 4+ VIEWS EXAM: XR KNEE RIGHT 4+ VIEWS HISTORY: knee pain COMPARISON: None. TECHNIQUE: 4 views FINDINGS: No acute fracture or dislocation. Mild degenerative changes of the knee joint. Unremarkable soft tissues. IMPRESSION: Mild degenerative changes as above. Normal [facility] XR Knee - right 4 Viewson IMPRESSION: Mild degenerative changes as above. RADIOLOGY EXAM: XR KNEE RIGHT 4+ VIEWS HISTORY: knee pain COMPARISON: None. TECHNIQUE: 4 views FINDINGS: No acute fracture or dislocation. Mild degenerative changes of the knee joint. Unremarkable soft tissues. RADIOLOGY Nusrat, Patrice Monteiro MD - 03/10/2023 EXAM: XR KNEE RIGHT 4+ VIEWS HISTORY: knee pain COMPARISON: None. TECHNIQUE: 4 views FINDINGS: No acute fracture or dislocation. Mild degenerative changes of the knee joint. Unremarkable soft tissues. IMPRESSION IMPRESSION: Mild degenerative changes as above. [facility] Radiology Study observation (narrative) [facility] XR Knee - right 4 ViewsOrder ed By: Patrice Silverio on 03-10-2023 [facility] Work Phone: Cervical or vagninal specime n microscopic examination by cytology stain (reported asOrdered By: Graciela Rebollar on 04-13-2022 Cytology report Cyto stain Doc (Cvx/Vag) Comment . [facility] Comment on above: The Pap smear is a s creening test designed to aid in thedetection of premalignant and malignant conditions of theuterine cervix. It is not a diagnostic procedure andshould not be used as the sole means of detecting cervicalcancer. Both false-positive and false-negative reports dooccur. Detection in cervical specim en of any of human papilloma virus (HPV) 16, 18, 31, 33,Ordered By: Graciela Rebollar on 04-13-2022 HPV 16+18+31+33+35+39+45+ 51+52+56+58+59+66+68 DNA Probe+sig amp Ql (Cvx) Negative Negative [facility] Comment on above: This nucleic acid am plification test detects fourteen high- risk HPV types (16,18,31,33,35,39,45,51,52,56,58,59,66,68)without differentiation. Laboratory - CytologyOrdered By: Graciela Rebollar on 04-13-2022 Plexiglas Former Cyto stain Nom (Cvx/Vag) [ID] Comment . [facility] Comment on above: Valerio Yancey , Principal Engineer (ASCP) Laboratory - Miscellaneous t estsOrdered By: Graciela Rebollar on 04-13-2022 Service comment (Unsp spec) [Interp] Comment . [facility] Comment on above: This liquid based Th inPrep(R) pap test was screened withthe use of an image guided system. Service comment (Unsp spec) [Interp] . . [facility] Liquid-based cerv Pap + CT/G C by MICHAEL w reflex to high-risk HPV for ASCUSOrdered By: Graciela Rebollar on 04-13-2022 Cytology report Cyto stain.thin prep Doc (Cvx/Vag) Comment . [facility] Comment on above: Criteria not met, HP V Genotype not performed.Performed at: - [facility] [id number] Director: Rufina Isaac MD, Phone: [phone] at: = - [facility] [id number] Director: Rufina Isaac MD, Phone: [phone] No Panel InformationOrdered By: Graciela Rebollar on 04-13-2022 Pathology report final diagnosis Narrative Comment . [facility] Comment on above: NEGATIVE FOR INTRAEP ITHELIAL LESION OR MALIGNANCY.CELLULAR CHANGES ASSOCIATED WITH INFLAMMATION ARE PRESENT. Otheron 01-15-2019 IMPRESSION: 1. Compl ex medial meniscal tear as described. 2. Reactive changes versus low-grade sprain MCL. 3. Mucoid degeneration the ACL. 4. Tricompartmental chondrosis, most significant the medial compartment. 5. Joint effusion, synovitis and partially ruptured Elias's cyst. [facility] EXAM: MRI KNEE LEFT WITHOUT CONTRAST REASON FOR EXAM: Left knee pain. TECHNIQUE: Multiplanar, multisequence imaging of the left knee was performed without contrast COMPARISON: Plain radiograph 01/02/2019. FINDINGS: Laterally, the iliotibial band, fibular collateral ligament, popliteus tendon and biceps tendon are intact. The ACL is intact. There is thickening and intermediate signal of the ACL favor to represent mucoid degeneration. The lateral meniscus demonstrates normal morphology with globular intrasubstance signal, which does not meet MRI criteria for tear. There is low-grade chondrosis of the lateral compartment without full-thickness chondral defect or subchondral marrow changes. Medially, the medial collateral ligament is intact. There is posterior ligamentous edema which may be reactive or reflect low-grade sprain. The PCL is intact. There is incomplete radial tear involving the posterior horn of the medial meniscus near the root horn attachment (series 7, image 22; series 4, image 10). There may also be horizontal undersurface oblique tearing involving the body posterior horn junction (series 7, images 20-23). There is diffuse intermediate grade chondrosis of the medial compartment. There are subchondral marrow edema involving the far peripheral aspect of the medial tibial plateau. The extensor mechanism is intact. The patellofemoral cartilage does is low-grade chondrosis. There is focal intermediate grade fissuring involving the lateral patellar facet (series 3, image 14). The bone marrow signal is otherwise normal without evidence of fracture, osteonecrosis or other marrow replacement process. A small joint effusion with synovial thickening is present compatible synovitis. This decompresses into a large partially ruptured Elias's cyst. The regional musculature is without muscle strain or tendon tear. [facility] User, Interfaces - 01/15/2019 1:12 PM EST EXAM: MRI KNEE LEFT WITHOUT CONTRAST REASON FOR EXAM: Left knee pain. TECHNIQUE: Multiplanar, multisequence imaging of the left knee was performed without contrast COMPARISON: Plain radiograph 01/02/2019. FINDINGS: Laterally, the iliotibial band, fibular collateral ligament, popliteus tendon and biceps tendon are intact. The ACL is intact. There is thickening and intermediate signal of the ACL favor to represent mucoid degeneration. The lateral meniscus demonstrates normal morphology with globular intrasubstance signal, which does not meet MRI criteria for tear. There is low-grade chondrosis of the lateral compartment without full-thickness chondral defect or subchondral marrow changes. Medially, the medial collateral ligament is intact. There is posterior ligamentous edema which may be reactive or reflect low-grade sprain. The PCL is intact. There is incomplete radial tear involving the posterior horn of the medial meniscus near the root horn attachment (series 7, image 22; series 4, image 10). There may also be horizontal undersurface oblique tearing involving the body posterior horn junction (series 7, images 20-23). There is diffuse intermediate grade chondrosis of the medial compartment. There are subchondral marrow edema involving the far peripheral aspect of the medial tibial plateau. The extensor mechanism is intact. The patellofemoral cartilage does is low-grade chondrosis. There is focal intermediate grade fissuring involving the lateral patellar facet (series 3, image 14). The bone marrow signal is otherwise normal without evidence of fracture, osteonecrosis or other marrow replacement process. A small joint effusion with synovial thickening is present compatible synovitis. This decompresses into a large partially ruptured Elias's cyst. The regional musculature is without muscle strain or tendon tear. IMPRESSION IMPRESSION: 1. Complex medial meniscal tear as described. 2. Reactive changes versus low-grade sprain MCL. 3. Mucoid degeneration the ACL. 4. Tricompartmental chondrosis, most significant the medial compartment. 5. Joint effusion, synovitis and partially ruptured Elias's cyst. [facility] Lab Report: PAP I-G HPV Hi R iskon 11-23-2016 GE use only - for Link[employer] import when terms are not otherwise specified Negative Invalid Interpretation Code Negative [facility] Office Visit: est annualon 0 11-18-2016 Documentation of current medications (procedure) Done Invalid Interpretation Code [facility] Fall risk assessment No Invalid Interpretation Code [facility] Hemoglobin presence in stool not done Invalid Interpretation Code [facility] Tobacco smoking status NHIS Never Invalid Interpretation Code [facility] Tobacco use CPHS Never smoker Invalid Interpretation Code [facility] Office Visit: est annualon 0 09-28-2015 Breast Mammogram screening Normal Bilateral Invalid Interpretation Code [facility] Vital Signs Date Time Vital Sign Value Performing Clinician Facility 05-21-2024 13:08-0400 Body height 172.72 cm Graciela FLYNN Work Phone: [facility] 05-21-2024 13:02-0400 Body mass index (BMI) [Ratio] 26.2 kg/m2 Graciela FLYNN Work Phone: [facility] 05-21-2024 13:02-0400 Body weight 78.07 kg Graciela Arzates [employer] Work Phone: [facility] 05-21-2024 13:02-0400 Diastolic blood pressure 70 mm[Hg] Graciela Rebollar [employer] Work Phone: [facility] 05-21-2024 13:02-0400 Systolic blood pressure 136 mm[Hg] Graciela Rebollar [employer] Work Phone: [facility] 03-06-2024 11:09-0500 Body height 172.7 cm Consuelo Chicas [employer]ERY SPECIALIST Work Phone: [phone] [place] [address] 03-06-2024 11:09-0500 Body mass index (BMI) [Ratio] 24.33 kg/m2 Consuelo Chicas [employer] NUR[employer]ERY SPECIALIST Work Phone: [phone] [place] [address] 03-06-2024 11:09-0500 Body temperature 98.6 [degF] Consuelo Chicas [employer] NURSERY SPECIALIST Work Phone: [phone] [place] [address] 03-06-2024 11:09-0500 Body weight 72.58 kg Consuelo Chicas [employer] NURSERY SPECIALIST Work Phone: [phone] [place] [address] 03-06-2024 11:09-0500 Diastolic blood pressure 92 mm[Hg] Consuelo Chicas [employer] NURSERY SPECIALIST Work Phone: [phone] [place] [address] 03-06-2024 11:09-0500 Heart rate 79 /min Consuelo Chicas [employer] AND NURSERY SPECIALIST Work Phone: [phone] [place] [address] 03-06-2024 11:09-0500 Respiratory rate 16 /min Consuelo Chicas [employer] AND NURSERY SPECIALIST Work Phone: [phone] [place] [address] 03-06-2024 11:09-0500 SaO2% (BldA) [Mass fraction] 97 % Consuelo Chicas [employer] AND NURSERY SPECIALIST Work Phone: [phone] [place] [address] 03-06-2024 11:09-0500 Systolic blood pressure 170 mm[Hg] Consuelo Chicas [employer] AND NURSERY SPECIALIST Work Phone: [facility] 08-21-2023 08:07-0400 Body height 172.7 cm Hi Turner [employer] AND NURSERY SPECIALIST Work Phone: [employer] [facility] 08-21-2023 08:07-0400 Body mass index (BMI) [Ratio] 26.15 kg/m2 Hi Turner [employer] AND NURSERY SPECIALIST Work Phone: [employer] [facility] 08-21-2023 08:07-0400 Body temperature 97.9 [degF] Hi Turner [employer] AND NURSERY SPECIALIST Work Phone: [facility] 08-21-2023 08:07-0400 Body weight 78.02 kg Hi Turner [employer] AND NURSERY SPECIALIST Work Phone: [facility] 07-17-2023 09:01-0400 Body height 172.7 cm Hi Turner [employer] AND NURSERY SPECIALIST Work Phone: [facility] 07-17-2023 09:01-0400 Body mass index (BMI) [Ratio] 26.15 kg/m2 Hi Turner [employer] NURSERY SPECIALIST Work Phone: [facility] 07-17-2023 09:01-0400 Body weight 78.02 kg Hi Turner APRN-GROUNDS AND NURSERY SPECIALIST Work Phone: [employer] [facility] 07-17-2023 09:01-0400 Respiratory rate 18 /min Hi Turner [employer] AND NURSERY SPECIALIST Work Phone: [facility] 06-28-2023 13:00-0400 Diastolic blood pressure 72 mm[Hg] Silvia Wolf MD Work Phone: [facility] 06-28-2023 13:00-0400 Heart rate 81 /min Silvia Wolf MD Work Phone: [facility] 06-28-2023 13:00-0400 Respiratory rate 18 /min Silvia Wolf MD Work Phone: [facility] 06-28-2023 13:00-0400 SaO2% (BldA) [Mass fraction] 98 % Silvia Wolf MD Work Phone: [facility] 06-28-2023 13:00-0400 Systolic blood pressure 154 mm[Hg] Silvia Wolf MD Work Phone: [facility] 06-28-2023 11:45-0400 Body temperature 98.1 [degF] Silvia Wolf MD Work Phone: [facility] 06-12-2023 09:38-0400 Body height 172.7 cm Hi Turner [employer] AND NURSERY SPECIALIST Work Phone: [facility] 06-12-2023 09:38-0400 Body mass index (BMI) [Ratio] 26.15 kg/m2 Hi Dorseyer [employer] AND NURSERY SPECIALIST Work Phone: [facility] 06-12-2023 09:38-0400 Body temperature 98.01 [degF] Hi Turner [employer] AND NURSERY SPECIALIST Work Phone: [facility] 06-12-2023 09:38-0400 Body weight 78.02 kg Hi Turner [employer] AND NURSERY SPECIALIST Work Phone: [facility] 06-12-2023 09:38-0400 Diastolic blood pressure 86 mm[Hg] Hi Dorseyer [employer] AND NURSERY SPECIALIST Work Phone: [facility] 06-12-2023 09:38-0400 Systolic blood pressure 132 mm[Hg] Hi Turnre [employer] AND NURSERY SPECIALIST Work Phone: [facility] 04-24-2023 15:10-0500 Body height 172.7 cm Silvia Wolf MD Work Phone: [facility] 04-24-2023 15:10-0500 Body mass index (BMI) [Ratio] 25.7 kg/m2 Silvia Wolf MD Work Phone: [facility] 04-24-2023 15:10-0500 Body weight 76.66 kg Silvia Wolf MD Work Phone: [facility] 03-10-2023 10:25-0500 Body height 172.7 cm Hi Turner DERRICK BOAT CAPTAIN-GROUNDS AND NURSERY SPECIALIST Work Phone: [facility] 03-10-2023 10:25-0500 Body mass index (BMI) [Ratio] 25.7 kg/m2 Hi Turner DERRICK BO[employer] CAPTAIN-GROUNDS AND NURSERY SPECIALIST Work Phone: [facility] 03-10-2023 10:25-0500 Body temperature 97.81 [degF] Hi Turner DERRICK BO[employer] CAPTAIN-GROUNDS AND NURSERY SPECIALIST Work Phone: [facility] 03-10-2023 10:25-0500 Body weight 76.66 kg Hi Turner DERRICK BO[employer] CAPTAIN-GROUNDS AND NURSERY SPECIALIST Work Phone: [facility] 04-13-2022 09:21-0500 Body height 172.[address] Geovanni Paez Work Phone: [facility] 04-13-2022 09:15-0500 Body mass index (BMI) [Ratio] 24.8 kg/m2 Dr. Geovanni Paez Work Phone: [facility] 04-13-2022 09:15-0500 Body weight 74.[address] Geovanni Paez Work Phone: [facility] 04-13-2022 09:15-0500 Diastolic blood pressure 82 mm[Hg] Dr. Geovanni Paez Work Phone: [facility] 04-13-2022 09:15-0500 Systolic blood pressure 130 mm[Hg] Dr. Geovanni Paez Work Phone: [facility] 05-12-2020 15:10-0400 BMI (Body Mass Index) 25.7 kg/m2 [facility] 05-12-2020 15:10-0400 Body Temperature 99.39 [degF] [facility] 05-12-2020 15:10-0400 Body weight 76.[address] [facility] 05-12-2020 15:10-0400 BP Diastolic 71 mm[Hg] [facility] 05-12-2020 15:10-0400 BP Systolic 154 mm[Hg] [facility] 05-12-2020 15:10-0400 Height 172.[address] [facility] 05-12-2020 15:10-0400 Pulse (Heart Rate) 71 /min [facility] 05-12-2020 15:10-0400 Pulse Oximetry 99 % [facility] 05-12-2020 15:10-0400 Respiratory Rate 16 /min [facility] 04-29-2019 08:10-0500 BMI (Body Mass Index) 24.96 kg/m2 [facility] 04-29-2019 08:10-0500 Body Temperature 97.7 [degF] [facility] 04-29-2019 08:10-0500 Body weight 74.45 kg [facility] 04-29-2019 08:10-0500 Height 172.7 cm [facility] 03-29-2019 08:53-0500 BMI (Body Mass Index) 24.48 kg/m2 [facility] 03-29-2019 08:53-0500 Body Temperature 97.7 [degF] [facility] 03-29-2019 08:53-0500 Body weight 73.03 kg [facility] 03-29-2019 08:53-0500 Height 172.7 cm [facility] 03-14-2019 10:00-0500 BP Diastolic 66 mm[Hg] [facility] 03-14-2019 10:00-0500 BP Systolic 139 mm[Hg] [facility] 03-14-2019 10:00-0500 Pulse (Heart Rate) 74 /min [facility] 03-14-2019 10:00-0500 Pulse Oximetry 96 % [facility] 03-14-2019 10:00-0500 Respiratory Rate 16 /min [facility] 03-14-2019 09:20-0500 Body Temperature 98.29 [degF] [facility] 03-14-2019 07:04-0500 Height 172.7 cm [facility] 03-07-2019 08:31-0500 BMI (Body Mass Index) 24.48 kg/m2 [facility] 03-07-2019 08:31-0500 Body Temperature 98.49 [degF] [facility] 03-07-2019 08:31-0500 Body weight 73.03 kg [facility] 03-07-2019 08:31-0500 BP Diastolic 76 mm[Hg] [facility] 03-07-2019 08:31-0500 BP Systolic 132 mm[Hg] [facility] 03-07-2019 08:31-0500 Height 172.7 cm [facility] 03-07-2019 08:31-0500 Pulse (Heart Rate) 72 /min [facility] 03-07-2019 08:31-0500 Pulse Oximetry 98 % [facility] 03-07-2019 08:31-0500 Respiratory Rate 16 /min [facility] 03-04-2019 09:33-0500 BMI (Body Mass Index) 24.78 kg/m2 [facility] 03-04-2019 09:33-0500 Body Temperature 97.7 [degF] [facility] 03-04-2019 09:33-0500 Body weight 73.94 kg [facility] 03-04-2019 09:33-0500 Height 172.7 cm [facility] 01-22-2019 13:19-0500 BMI (Body Mass Index) 25.14 kg/m2 [facility] 01-22-2019 13:19-0500 Body weight 75 kg [facility] 01-22-2019 13:19-0500 Height 172.7 cm [facility] 01-02-2019 09:40-0500 BMI (Body Mass Index) 25.15 kg/m2 [facility] 01-02-2019 09:40-0500 Body Temperature 98.8 [degF] [facility] 01-02-2019 09:40-0500 Body weight 75.03 kg Sedrick [facility] 01-02-2019 09:40-0500 Height 172.7 cm Sedrick [facility] 11-18-2016 08:07-0400 BMI (Body Mass Index) 25.02 kg/m2 Graciela Rebollar NP [facility] 11-18-2016 08:07-0400 Body Temperature 96.1 [degF] Graciela Rebollar NP [facility] 11-18-2016 08:07-0400 BP Diastolic 79 mm[Hg] Graciela Rebollar [employer] [facility] 11-18-2016 08:07-0400 BP Systolic 150 mm[Hg] Graciela Rebollar NP [facility] 11-18-2016 08:07-0400 Height 173.99 cm Graciela Rebollar NP [facility] 11-18-2016 08:07-0400 Pulse (Heart Rate) 64 /min Graciela Rebollar NP [facility] 11-18-2016 08:07-0400 Respiratory Rate 16 /min Graciela Rebollar [employer] [facility] 11-18-2016 08:07-0400 Weight 75.75 kg Graciela Rebollar NP [facility] Encounters Encounter Date Encounter Type Care Provider Facility Start: 08-15-2024 ambulatory [facility] Facility:[facility] Start: 06-04-2024 End: 06-04-2024 ambulatory [facility] Facility:[facility] Start: 05-21-2024 Encounter for gynecological examination (general) (routine) without abnormal findings Graciela Rebollar NP [facility] Start: 05-21-2024 End: 05-21-2024 Patient encounter status Graciela Rebollar [employer] [facility] Start: 05-21-2024 End: 05-21-2024 ambulatory Graciela Rebollar [employer] Work Phone: [facility] Work Phone: Start: 05-21-2024 End: 05-21-2024 Patient encounter procedure Graciela Rebollar [employer] Work Phone: Start: 05-21-2024 End: 05-21-2024 ambulatory Graciela Rebollar [employer] Facility:[facility] Start: 03-06-2024 End: 03-06-2024 Patient encounter procedure Consuelo Chicas DERRICK BOAT CAPTAIN-GROUNDS AND NURSERY SPECIALIST Work Phone: [facility] Comment on above: Impacted cerumen of left ear (Primary Dx); Acute swimmer's ear of left side Start: 03-06-2024 End: 03-06-2024 ambulatory [facility] Start: 08-21-2023 End: 08-21-2023 Postop follow up visit related to original px Hi Turner DERRICK BOAT CAPTAIN-GROUNDS AND NURSERY SPECIALIST Work Phone: [facility] Comment on above: S/P right knee arthr oscopy (Primary Dx) Start: 08-21-2023 ambulatory HI TYRONE [facility] Start: 08-03-2023 ambulatory [facility] Start: 07-31-2023 ambulatory [facility] Start: 07-28-2023 ambulatory [facility] Start: 07-20-2023 ambulatory [facility] Start: 07-17-2023 End: 07-17-2023 Postop follow up visit related to original px Hi Turner DERRICK BOAT CAPTAIN-GROUNDS AND NURSERY SPECIALIST Work Phone: [facility] Comment on above: S/P right knee arthr oscopy (Primary Dx) Start: 07-17-2023 ambulatory [facility] Start: 07-13-2023 ambulatory [facility] Start: 07-10-2023 ambulatory [facility] Start: 07-06-2023 ambulatory [facility] Start: 07-04-2023 ambulatory [facility] Start: 06-28-2023 End: 06-28-2023 [facility] Start: 06-28-2023 End: 06-28-2023 Subsequent hospital visit by physician Silvia Wolf MD Work Phone: [facility] Comment on above: Tear of medial menis cus of right knee, current, unspecified tear type, initial encounter Start: 06-12-2023 End: 06-12-2023 Patient encounter procedure Hi Turner APRN-GROUNDS AND NURSERY SPECIALIST Work Phone: [facility] Comment on above: Primary osteoarthrit is of right knee (Primary Dx); Other tear of medial meniscus of right knee as current injury, initial encounter Start: 06-12-2023 ambulatory HIBENJIE TURNER [facility] Start: 05-31-2023 ambulatory [facility] Start: 05-31-2023 Encounter for other preprocedural examination SILVIA [facility] Start: 04-24-2023 End: 04-24-2023 Office outpatient new 45 minutes Silvia Wolf MD Work Phone: [facility] Comment on above: Other tear of medial meniscus of right knee as current injury, initial encounter (Primary Dx); Primary osteoarthritis of right knee Start: 04-24-2023 ambulatory [facility] Start: 04-12-2023 End: 04-12-2023 Subsequent hospital visit by physician Hi Turner APRN-GROUNDS AND NURSERY SPECIALIST Work Phone: [facility] Comment on above: Arrived Start: 04-12-2023 ambulatory [facility] Start: 03-10-2023 End: 03-10-2023 Office outpatient visit 15 minutes Hi Turner DERRICK BOAT CAPTAIN-GROUNDS AND NURSERY SPECIALIST Work Phone: [facility] Comment on above: Right knee pain, uns pecified chronicity (Primary Dx); Sprain of right knee, unspecified ligament, initial encounter Start: 03-10-2023 ambulatory [facility] Start: 07-18-2022 End: 07-18-[address] Geovanni Paez Work Phone: [facility] Work Phone: Start: 07-18-2022 End: 07-18-[address] Geovanni Paez Work Phone: [facility]-Outpatient Breast Imaging Start: 04-13-2022 End: 04-13-[address] Geovanni Paez Work Phone: [facility] Work Phone: Start: 04-13-2022 End: 04-13-[address] Geovanni Paez Work Phone: [facility]-Laboratory, Specimen Start: 04-13-2022 End: 04-13-[address] Geovanni Paez Work Phone: [facility] Start: 05-12-2020 End: 05-12-2020 Office outpatient new 30 minutes Luis Manuel Mccrary Work Phone: [facility] Comment on above: Impacted cerumen of left ear (Primary Dx) Start: 04-29-2019 End: 04-29-2019 Postop follow up visit related to original px Hi Turner Work Phone: [facility] Comment on above: S/P left knee arthro scopy (Primary Dx) Start: 03-29-2019 End: 03-29-2019 Postop follow up visit related to original px Hi Turner Work Phone: [facility] Comment on above: S/P left knee arthro scopy (Primary Dx) Start: 03-14-2019 End: 03-14-2019 Subsequent hospital visit by physician Silvia Wolf Work Phone: [facility] Comment on above: Tear of medial menis cus of left knee, current, unspecified tear type, initial encounter Start: 03-07-2019 End: 03-07-2019 Office outpatient new 30 minutes Alexis Foreman Work Phone: [facility] Comment on above: Acute otitis externa of right ear, unspecified type (Primary Dx); Tear of medial meniscus of left knee, current, sequela; Preoperative examination; Routine general medical examination at a health care facility Start: 03-04-2019 End: 03-04-2019 Office outpatient new 45 minutes Silvia Wolf Work Phone: [facility] Comment on above: Acute medial meniscu s tear of left knee, initial encounter (Primary Dx) Start: 01-22-2019 End: 01-22-2019 Office outpatient visit 25 minutes Sedrick Royal Work Phone: [facility] Comment on above: Complex tear of medi al meniscus of left knee as current injury, subsequent encounter (Primary Dx) Start: 01-15-2019 End: 01-15-2019 Subsequent hospital visit by physician Sedrick Royal Work Phone: [facility] MRI Comment on above: Arrived Start: 01-02-2019 End: 01-02-2019 Office outpatient new 30 minutes Sedrick Royal Work Phone: [facility] Comment on above: Acute pain of left k nee (Primary Dx); Other specified joint disorders, unspecified joint Procedures Date Procedure Procedure Detail Performing Clinician Start: 05-21-2024 Screening mammography Diego Rebollar [employer] Work Phone: Start: 03-06-2024 Removal impacted cer umen irrigation/lvg unilat Consuelo Chicas DERRICK BOAT CAPTAIN-GROUNDS AND NURSERY SPECIALIST Work Phone: Start: 04-12-2023 Mri any jt lower ext rem w/o contrast matrl Hi Turner DERRICK BOAT CAPTAIN-GROUNDS AND NURSERY SPECIALIST Work Phone: Start: 07-18-2022 Screening mammography Shauna Paez Work Phone: Start: 03-14-2019 CARDIAC RHYTHM Historic al Provider Start: 03-14-2019 ORDERS (SCAN) Historica l Provider Start: 03-14-2019 End: 03-14-2019 Arthrs kne surg w/meniscectomy med/lat w/shvg Silvia Wolf Work Phone: Start: 01-15-2019 MRI of knee Sedrick munoz Work Phone: Start: 10-06-2016 End: 11-23-2016 Mammogram, screening Graciela Rebollar [employer] Work Phone: Start: 10-06-2016 Screening mammography Mammogra m yearly screening Graciela Rebollar [employer] Plan of Treatment Date Care Activity Detail Author Start: 10-29-2023 Influenza vaccination INFLUENZ A VACCINE (Season Ended) [facility] Start: 08-21-2023 End: 08-21-2023 Patient encounter procedure 08/21/2023 8:20 AM EDT Office Visit [address] [address] Hi Turner, DERRICK BOAT CAPTAIN-GROUNDS AND NURSERY SPECIALIST [address] [place] [phone] [facility] Start: 07-28-2023 End: 07-28-2023 ambulatory 07/28/2023 8:40 AM EDT Rehab Services Visit [facility] Therapy umb [address] [place] [address] Silvia Wolf MD [address] [place] [address] Sathya Nicole PTA [facility] Physical [facility] Start: 07-20-2023 End: 07-20-2023 ambulatory 07/20/2023 9:20 AM EDT Rehab Services Visit [facility] [address] [place] [address] Silvia Wolf MD [address] [place] [address] [place], PT [address] [place] [address] [facility] Start: 07-18-2023 End: 07-18-2023 Patient encounter procedure 07/18/2023 9:10 AM EDT Office Visit [address] [address] Hi Turner, DERRICK BOAT CAPTAIN-GROUNDS AND NURSERY SPECIALIST [address] [place] [address] [facility] Start: 07-17-2023 End: 07-17-2023 Patient encounter procedure 07/17/2023 9:00 AM EDT Office Visit [facility] [address] [facility] [place] [address] Hi Turner, DERRICK BOAT CAPTAIN-GROUNDS AND NURSERY SPECIALIST [address] [place] [address] [facility] Start: 06-28-2023 Subsequent hospital visit by physician 06/28/2023 [facility] [address] [place] [id number] Silvia Wolf MD [address] [place] [address] Tear of medial meniscus of right knee, current, unspecified tear type, initial encounter [facility] Comment on above: Tear of medial menis cus of right knee, current, unspecified tear type, initial encounter Start: 06-28-2023 End: 06-28-2023 Arthrs kne surg w/meniscectomy med/lat w/shvg ARTHROSCOPY KNEE W/ MENISCECTOMY Tear of medial meniscus of right knee, current, unspecified tear type, initial encounter Primary osteoarthritis of right knee 06/28/2023 10:35 AM EDT [facility] Start: 06-28-2023 End: 06-28-2023 Admission to same day surgery center 06/28/2023 7:30 AM EDT - 06/28/2023 8:30 AM EDT [facility] [address] [place] [address] Silvia Wolf MD [address] [place] [address] ARTHROSCOPY KNEE W/ MENISCECTOMY [facility] Comment on above: ARTHROSCOPY KNEE W/ MENISCECTOMY Start: 06-28-2023 End: 06-28-2023 Arthrs kne surg w/meniscectomy med/lat w/shvg ARTHROSCOPY KNEE W/ MENISCECTOMY Tear of medial meniscus of right knee, current, unspecified tear type, initial encounter Primary osteoarthritis of right knee 06/28/2023 7:30 AM EDT [facility] Start: 06-12-2023 End: 06-12-2023 Patient encounter procedure 06/12/2023 9:40 AM EDT Office Visit [facility] [address] [place] [address] Hi Turner APRN-SELVIN [address] [place] [address] [facility] Start: 05-31-2023 End: 05-31-2023 Admission to establishment 05/31/2023 8:30 AM EDT Pre-Operative Nurse Assessment [facility] Pre Admission [address] [place] [phone] [facility] Pre Admission Start: 03-10-2023 End: 03-10-2024 MR Knee - right WO contrast MRI KNEE RIGHT WITHOUT CONTRAST Imaging Routine Sprain of right knee, unspecified ligament, initial encounter Expected: 03/10/2023, Expires: 03/10/2024 [facility] Comment on above: Expected: 03/10/2023 , Expires: 03/10/2024 Start: 10-28-2022 COVID-19 VACCINE ( season) COVID-19 VACCINE ( season) [facility] Start: 10-28-2022 Influenza vaccination INFLUENZA VACC INE (#1) [facility] Start: 10-29-2019 Influenza vaccination INFLUENZA VACC INE (#1) [facility] Start: 05-01-2019 End: 05-01-2019 Rehab Services Visit 05/01/2019 Rehab Services Visit Physical Therapy Hi Turner, GARRET-GROUNDS AND NURSERY SPECIALIST [address] [place] [address] [phone] Yoan Pope, HARDNESS TESTER [address] [place] [address] [facility] Physical Therapy [place] Start: 04-29-2019 End: 04-29-2019 Office Visit 04/29/2019 Office Visit Orthopaedics Hi Turner, DERRICK BOAT CAPTAIN-GROUNDS AND NURSERY SPECIALIST [address] [facility] [place] [address] [facility] Start: 04-05-2019 End: 04-05-2019 Rehab Services Visit 04/05/2019 Rehab Services Visit Physical Therapy Hi Turner, DERRICK BOAT CAPTAIN-GROUNDS AND NURSERY SPECIALIST [address] [place] [address], [place] [address] Yoan Pope, HARDNESS TESTER [address] [place] [address] [facility] Physical Therapy [place] Start: 04-03-2019 End: 04-03-2019 Rehab Services Visit 04/03/2019 Rehab Services Visit Physical Therapy Hi Turner, DERRICK BOAT CAPTAIN-GROUNDS AND NURSERY SPECIALIST [address] [place] [address], [place] [address] [phone] Yoan Pope, HARDNESS TESTER [address] [place] [address] [facility] Physical Therapy [place] Start: 04-01-2019 End: 04-01-2019 Rehab Services Visit 04/01/2019 Rehab Services Visit Physical Therapy Hi Turner, DERRICK BOAT CAPTAIN-GROUNDS AND NURSERY SPECIALIST [address] [place] [address], [place] [address] [phone] Yoan Pope, HARDNESS TESTER [address] [place] [address] [facility] Physical Therapy [place] Start: 03-29-2019 End: 03-29-2019 Office Visit 03/29/2019 Office Visit Orthopaedics Hi Turner, DERRICK BOAT CAPTAIN-GROUNDS AND NURSERY SPECIALIST [address] [place] [address], [place] [address] [facility] Start: 03-22-2019 End: 03-22-2019 Rehab Services Visit 03/22/2019 Rehab Services Visit Physical Therapy Mali Kimball MD [address] [place] [address] [phone] Yoan Pope, HARDNESS TESTER [address] [place] [address] [facility] Physical Therapy [place] Start: 03-20-2019 End: 03-20-2019 Rehab Services Visit 03/20/2019 Rehab Services Visit Physical Therapy Mali Kimball MD [address] [place] [address] Pope Yoan, HARDNESS TESTER [address] [place] [address] [facility] Physical Therapy [facility] Start: 03-14-2019 End: 03-14-2019 Procedure Pass [facility] Comment on above: Tear of medial menis cus of left knee, current, unspecified tear type, initial encounter ARTHROSCOPY KNEE W/ MENISCECTOMY Left Start: 03-07-2019 End: 03-07-2020 CBC, EDIF, PLATELET CBC, EDIF, PLATELET Lab Routine Acute otitis externa of right ear, unspecified type Tear of medial meniscus of left knee, current, sequela Preoperative examination Routine general medical examination at a health care facility Expected: 03/07/2019, Expires: 03/07/2020 [facility] Comment on above: Expected: 03/07/2019 , Expires: 03/07/2020 Start: 03-07-2019 End: 03-07-2020 Comprehensive metabolic 2000 panel COMPREHENSIVE METABOLIC PANEL Lab Routine Acute otitis externa of right ear, unspecified type Tear of medial meniscus of left knee, current, sequela Preoperative examination Routine general medical examination at a health care facility Expected: 03/07/2019, Expires: 03/07/2020 [facility] Comment on above: Expected: 03/07/2019 , Expires: 03/07/2020 Start: 03-07-2019 End: 03-07-2020 LIPID PANEL W CALCULATED LDL LIPID PANEL W CALCULATED LDL Lab Routine Acute otitis externa of right ear, unspecified type Tear of medial meniscus of left knee, current, sequela Preoperative examination Routine general medical examination at a health care facility Expected: 03/07/2019, Expires: 03/07/2020 [facility] Comment on above: Expected: 03/07/2019 , Expires: 03/07/2020 Start: 03-07-2019 End: 03-07-2020 TSH W/FT4 REFLEX TSH W/FT4 REFLEX Lab Routine Acute otitis externa of right ear, unspecified type Tear of medial meniscus of left knee, current, sequela Preoperative examination Routine general medical examination at a health care facility Expected: 03/07/2019, Expires: 03/07/2020 [facility] Comment on above: Expected: 03/07/2019 , Expires: 03/07/2020 Start: 03-04-2019 End: 03-04-2019 Office Visit 03/04/2019 Office Visit Orthopaedics Silvia Wolf MD [address] [place] [address] [phone] [facility] Start: 01-23-2019 End: 01-23-2019 Office Visit 01/23/2019 Office Visit Orthopaedics Sedrick Royal, [address] [place] [address], [place] [address] [phone] [facility] Start: 01-22-2019 End: 01-22-2019 Office Visit 01/22/2019 Office Visit Orthopaedics Sedrick Royal, [address] [place] [address], [place] [address] [phone] [facility] Start: 01-02-2019 End: 01-30-2019 X-ray of left knee XR KNEE LEFT 3 VIEWS Imaging Routine Acute pain of left knee Expected: 01/02/2019, Expires: 01/30/2019 [facility] Comment on above: Expected: 01/02/2019 , Expires: 01/30/2019 Start: 10-28-2018 Influenza vaccination INFLUENZA VACC INE (#1) [facility] Start: 01-29-2018 Tetanus vaccination TETANUS [facility] Start: 11-18-2016 End: 11-18-2016 Appointment Appointment [facility] Start: 10-06-2016 End: 11-23-2016 Mammogram, screening Mammogram, Screening, both breasts [facility] Start: 05-02-2013 Screening for malign ant neoplasm of colon COLORECTAL CANCER SCREENING DISCUSSION [facility] Start: 02-15-2010 Colonoscopy [facility] Start: 02-15-2010 Zoster vaccine hzv l mony for subcutaneous use ZOSTER (SHINGLES) VACCINE (1 of 2) [facility] Start: 02-15-2005 Screening for malign ant neoplasm of colon COLORECTAL CANCER SCREENING DISCUSSION [facility] Start: 2000 Fasting lipid profile LIPID SCREENIN G [facility] Start: 2000 Lipid panel LIPID SCREENING [facility] [place] Start: 2000 Screening for malign ant neoplasm of breast MAMMOGRAM SCREENING DISCUSSION [facility] Start: 2000 Screening mammography MAMMOGRA M SCREENING DISCUSSION [facility] Start: 02-15-1981 Screening for malign ant neoplasm of cervix [facility] Start: 02-15-1979 Third diphtheria, tetanus and acellular pertussis (DTaP) vaccination TDAP (ADULT) [facility] Start: 02-15-1978 Tetanus vaccination [facility]ETANUS [facility] Start: 1976 COVID-19 VACCINE (1) COVID-19 VACCIN E (1) [facility] Start: 02-15-1975 HIV screening HIV SCREENING DISCUSSI ON [facility] Start: 02-15-1973 HIV screening HIV SCREENING DISCUSSI ON [facility] Start: 1960 COVID-19 VACCINE (#1) COVID-19 VACCI NE (#1) [facility] Start: 1960 Hepatitis C antibody , confirmatory test HEPATITIS C VIRUS SCREENING [facility] Start: 1960 Hepatitis C screening HEPATITI S C VIRUS SCREENING [facility] Removal impacted cerumen irrigation/lvg unilat MO REMOVAL IMPACTED CERUMEN IRRIGATION/LVG UNILAT MO Charge Routine Impacted cerumen of left ear Ordered: 05/12/2020 [facility] Comment on above: Ordered: 05/12/2020 X-ray of left knee XR KNEE LEFT 3 VIEWS Imaging Routine Acute pain of left knee 01/02/2019 10:05 AM EST [facility] Immunizations Immunization Date Immunization Notes Care Provider Elizabeth geller 03-14-2012 influenza virus vaccine, unspecified formulation Hi Turner [employer] CAPTAIN-GROUNDS AND NURSERY SPECIALIST Work Phone: [facility] 12-04-2008 influenza virus vaccine, unspecified formulation Sedrick Royal [facility] Payers Date Payer Category Payer Self-pay [id number] 2024 [employer] ANTHEM HMP [id number] 2023 Unknown ANTHEM ANTHEM HM O PPO POS [id number] 2023-Present [address] [place] [address] [id number] 2023 Unknown [id number] 2018 Unknown ANTHEM ANTHEM HM O PPO POS xxxxxxxxxxxx 2018-Present [id number] 2018 Unknown ANTHEM ANTHEM HM O PPO POS [id number] 2018-Present [id number] .7.3.740900.315 1960 Unknown [id number] 2..840.1.359689.3.579.2 .983 1960 Unknown [id number] .840.1.024222.3.579.2 .983 1960 Unknown [id number] 2.840.1.197820.3.579.2 .983 1960 Unknown [id number] 2.16840.1.604645.3.579.2 .983 1960 Unknown [id number] 2.16840.1.825362.3.579.2 .983 1960 Unknown [id number] 2.16.840.1.554398.3.579.2 .983 1960 Unknown [id number] 2.16.840.1.283587.3.579.2 .983 1960 Unknown [id number] 2.16.840.1.010613.3.579.2 .983 1960 Unknown [id number] 2.16.840.1.335953.3.579.2 .983 1960 Unknown [id number] 2.16.840.1.997546.3.579.2 .983 1960 Unknown [id number] 2.16.840.1.906377.3.579.2 .983 1960 Unknown [id number] 2.16.840.1.827616.3.579.2 .983 1960 Unknown [id number] 2.16.840.1.946570.3.579.2 .983 1960 Unknown [id number] 2.16.840.1.639384.3.579.2 .983 1960 Unknown [id number] 2.16.840.1.505015.3.579.2 .983 1960 Unknown [id number] 2.16.840.1.097053.3.579.2 .983 1960 Unknown [id number] 2.16.840.1.918616.3.579.2 .983 1960 Unknown [id number] 2.16.840.1.947157.3.579.2 .983 1960 Unknown [id number] 2.16.840.1.220757.3.579.2 .1243 Private Health Insurance [employer] [id number] Unknown ANTHEM [id number] Unknown [id number] 2.16.840.1.935034.3.579.2 .462 Unknown [id number] 2.16.840.1.539724.3.579.2 .462 Unknown [id number] 2.16.840.1.365558.3.579.2 .462 Unknown [id number] 2.16.840.1.913712.3.579.2 .462 Social History Date Type Detail Facility Start: 01-03-2019 End: 04-13-2022 Tobacco smoking status NHIS Never smoker [facility] Start: 1960 [facility] on [facility] Start: 03-07-2019 End: 08-21-2023 Alcohol intake Lifetime non-drinker (finding) [facility] Start: 03-06-2019 History SDOH Alcohol Frequency 1 [facility] Start: 05-12-2020 End: 03-10-2023 Tobacco use and exposure Never used [facility] stem Start: 04-13-2022 End: 04-13-2022 Tobacco smoking status GAIS Unknown if ever smoked [facility] Start: 1960 Sex Assigned At Female [facility] Start: 03-06-2019 End: 08-21-2023 History of Social function [facility] Start: 03-06-2019 End: 08-21-2023 Alcohol Use Disorder Identification Test - Consumption [AUDIT-C] [facility] Frequency of Alcohol Consumption Never [facility] Start: 02-25-2024 End: 03-06-2024 Exposure to SARS-CoV-2 (event) Not sure [facility] Start: 05-27-2024 Sex Female (finding) [facility] Goals Date Patient Goal Desired Activity /State Personal health goal Comment on above: Formatting of this n ote is different from the original. 1. Pt will be independent in a HEP to perform to improve muscular strength and endurance of the affected LE, knee and hip ROM, and gait/balance exercises. 2. Pt will report reduced pain in the affected knee to 0-1/10 or to an accepted level of tolerance to return to prior level of functional and recreational activities. 3. Pt will demonstrate improved strength of the affected LE to allow performance of 15-20 6 step downs and symmetrical balance and reach excursion in 4-6 weeks. 4. Pt will be able to demonstrate full body weight chair squat without pain in the knee. 5. Pt will be able to ambulate with normal gait pattern showing full knee extension during stance phase, normal knee flexion during swing phase, and a normal bebo and stride length without assistive device. Personal health goal Comment on above: Formatting of this n ote is different from the original. Pt will be independent in a HEP to improve muscular strength and endurance of the affected LE, knee and hip ROM and gait/balance exercises. Pt will report reduced pain in the affected knee to 0-1/10 or to an accepted level of tolerance to return to prior level of functional and recreational activities. Pt will demonstrate improved strength of the affected LE to allow performance of 20 7 step-ups and symmetrical balance and reach excursion.. Pt will be able to demonstrate full body weight chair squat without pain in the knee. Pt will be able to ambulate with normal gait pattern showing full knee extension during stance phase, normal knee flexion during swing phase and a normal bebo and stride length without assistive device. Comment on above: 1. Pt will be indepe ndent in a HEP to perform to improve muscular strength and endurance of the affected LE, knee and hip ROM, and gait/balance exercises. 2. Pt will report reduced pain in the affected knee to 0-1/10 or to an accepted level of tolerance to return to prior level of functional and recreational activities. 3. Pt will demonstrate improved strength of the affected LE to allow performance of 15-20 6 step downs and symmetrical balance and reach excursion in 4-6 weeks. 4. Pt will be able to demonstrate full body weight chair squat without pain in the knee. 5. Pt will be able to ambulate with normal gait pattern showing full knee extension during stance phase, normal knee flexion during swing phase, and a normal bebo and stride length without assistive device. Clinical Notes 04-13-2022 to 05-21-2024 Note Date & Type Note Facility 05-21-2024 Evaluation note Diagnosis Onset Date Resolution Atrophic vaginitis acute May 21, 2024 12:45pm Encounter for routine gynecological examination noneactive May 21, 2024 12:45pm [facility] Work Phone: 1(499) 498-985401-08-2025 History of Present illness Narrative* Consuelo Chicas, [employer] CAPTAIN-GROUNDS AND NURSERY SPECIALIST - 03/06/2024 11:05 AM EST [facility] [place] NOTE: Name: Maurice Avilez, 64 y.o. CSN:[id number] PCP: Fely Ba PA-C ALL: Allergies Allergen Reactions Sulfa (Sulfonamide Antibiotics) Rash History: Chief Complaint: Earache (Itching and fullness in left ear for the past few weeks.) Encounter Date: 03/06/2024 HPI: The history was obtained from the patient. Maurice is a 64 y.o. female, who presents with a chief complaint of Earache (Itching and fullness in left ear for the past few weeks.) Patient presents with left ear fullness with decreased hearing and itchiness over the last week. Denies any pain, sinus congestion, fever, chills. Is flying next week and concern for worsening symptoms. PMHx: No past medical history on file. Current Outpatient Medications Medication Sig Dispense Refill ciprofloxacin-dexamethasone (Ciprodex) otic suspension Administer 4 drops into the left ear 2 timesa day for 7 days. 7.5 mL 0 No current facility-administered medications for this visit. PMSx: No past surgical history on file. Fam Hx: No family history on file. SOC. Hx: Social History Socioeconomic History Marital status: Spouse name: Not on file Number of children: Not on file Years of education: Not on file Highest education level: Not on file Occupational History Not on file Tobacco Use Smoking status: Not on file Smokeless tobacco: Not on file Substance and Sexual Activity Alcohol use: Not on file Drug use: Not on file Sexual activity: Not on file Other Topics Concern Not on file Social History Narrative Not on file Social Drivers of Health Financial Resource Strain: Not on file Food Insecurity: Not on file Transportation Needs: Not on file Physical Activity: Not on file Stress: Not on file Social Connections: Not on file Intimate Partner Violence: Not on file Housing Stability: Not on file Vitals: 03/06/24 1109 BP: (!) 170/92 Pulse: 79 Resp: 16 Temp: 37 C (98.6 F) SpO2: 97% 72.6 kg (160 lb) Physical Exam Vitals and nursing note reviewed. Constitutional: Appearance: Normal appearance. HENT: Head: Normocephalic and atraumatic. Left Ear: Swelling and tenderness present. A middle ear effusion is present. There is impacted cerumen. Mouth/Throat: Mouth: Mucous membranes are moist. Pharynx: Oropharynx is clear. Eyes: Pupils: Pupils are equal, round, and reactive to light. Cardiovascular: Rate and Rhythm: Normal rate and regular rhythm. Pulses: Normal pulses. Heart sounds: Normal heart sounds. Pulmonary: Effort: Pulmonary effort is normal. Breath sounds: Normal breath sounds. Abdominal: General: Abdomen is flat. Bowel sounds are normal. Palpations: Abdomen is soft. Musculoskeletal: General: Normal range of motion. Cervical back: Normal range of motion. Skin: General: Skin is warm and dry. Capillary Refill: Capillary refill takes less than 2 seconds. Neurological: Mental Status: She is alert and oriented to person, place, and time. LABORATORY @ RADIOLOGICAL IMAGING (if done): No results found for this or any previous visit (from the past 24 hours). I did personally review Maurice's past medical history, surgical history, social history, as well as family history (when relevant). In this case, I also oversaw the her drug management by reviewing her medication list, allergy list, as well as the medications that I prescribed during the UC courseand/or recommended as an out-patient (including possible OTC medications such as acetaminophen, NSAIDs , etc). After reviewing the items above, I did look at previous medical documentation, such as recent hospitalizations, office visits, and/or recent consultations with PCP/specialist. SDOH: Another factor that I considered in Maruice's care was her Social Determinants of Health (SDOH). During this UC encounter, she did not have social determinants of health. Those SDOH influencingMaurice's care are: none COURSE/MEDICAL DECISION MAKING: Maurice is a 64 y.o., who presents with a working diagnosis of 1. Impacted cerumen of left ear 2. Acute swimmer's ear of left side Maurice was seen today for earache. Diagnoses and all orders for this visit: Impacted cerumen of left ear (Primary) Acute swimmer's ear of left side - ciprofloxacin-dexamethasone (Ciprodex) otic suspension; Administer 4 drops into the left ear 2 times a day for 7 days. Other orders - Ear Cerumen Removal Plan of care reviewed with patient. If symptoms change and/or worsen will follow-up with primary care provider, return to urgent care, or go to the nearest emergency department for further evaluation. Patient states understanding and is agreeable with plan of care. Consuelo Chicas APRN, [place] Advanced Practice Provider [facility] Please note: While the patient may or may not have received printed discharge paperwork, all relevant medical findings, test results, and treatment details are accessible through the electronic medical record system. The patient is encouraged to review their chart via the patient portal for comprehensive information and follow-up instructions. * SYEDA Bhandari - 03/06/2024 11:05 AM ESTAssociated Order(s): Ear Cerumen Removal Patient ID: Maurice Avilez is a 64 y.o. female. Ear Cerumen Removal Performed by: SYEDA Bhandari Authorized by: SYEDA Bhandari Consent: Consent obtained: Verbal Consent given by: Patient Risks, benefits, and alternatives were discussed: yes Risks discussed: Infection, bleeding, pain, TM perforation, incomplete removal and dizziness Alternatives discussed: No treatment A[place]ell protocol: Procedure explained and questions answered to patient or proxy's satisfaction: yes Relevant documents present and verified: yes Test results available: no Imaging studies available: no Required blood products, implants, devices, and special equipment available: no Site/side marked: no Immediately prior to procedure, a time out was called: no Patient identity confirmed: Verbally with patient Procedure details: Location: L ear Procedure type: irrigation Procedure outcomes: cerumen removed Post-procedure details: Inspection: No bleeding, TM intact and macerated skin Hearing quality: Improved Procedure completion: Tolerated well, no immediate complications [facility] Work Phone: 1(225) 276-736706-24-2024 History of Present illness Narrative* SYEDA Lau - 08/21/2023 8:20 AM EDT Orthopedics and Sports Medicine Chief Complaint Patient presents with Post Op Visit 7 week PO Follow-up right knee scope. Patient reports she is doing well but has some lateral knee swelling that has been improving. No longer in PT. HPI: She presents 7 weeks s/p right knee arthroscopy, PMM. She states the knee is doing well. Has some pain laterally. No longer in physical therapy. Has occasional swelling which is improving. Denies anyother issues or concerns. Vitals: 08/21/23 0807 Temp: 97.9 degrees F (36.6 degrees C) TempSrc: Temporal Weight: 78 kg (172 lb) Height: 1.727 m (5' 8) Physical Exam: Involved Lower Extremity: ROM: 0-120. Quad tone good. Calf supple and non tender. Minimal effusion. Incisions healing well. No erythema. No drainage. Distally neurovascularly intact with 2+ DP pulse and full sensation in the DP/SP/Tibial nerve distribution. Assessment: ICD-10-CM 1. S/P right knee arthroscopy Z98.890 Plan: She is doing well, continue PT exercises to work on ROM, strengthening, and swelling control. She will use NSAIDS as needed for pain control. If She has any questions or issues She will contact the office. Follow up as needed. Voice recognition software was used for this note. I have edited this note but errors may occur [facility] History of Present illness Narrative* SYEDA Lau - 07/17/2023 9:00 AM EDT Orthopedics and Sports Medicine Chief Complaint Patient presents with Right Knee - Post Op Visit 2 week PO Follow-up right knee scope. Patient reports is doing well, pain level is good, feels likemore swelling than last time. Admits is bad at resting, but is elevating and icing correctly. HPI: She presents 2 weeks s/p right knee arthroscopy, PMM. She states the knee is doing well overall. She has more swelling this time. She has been active. She denies any other issues or concerns. Vitals: 07/17/23 0901 Resp: 18 Weight: 78 kg (172 lb) Height: 1.727 m (5' 8) Physical Exam: Involved Lower Extremity: ROM: 0-120. Quad tone good. Calf supple and non tender. Mild effusion. Incisions healing well. No erythema. No drainage. Sutures removed. Steri strips placed. Distally neurovascularly intact with 2+ DP pulse and full sensation in the DP/SP/Tibial nerve distribution. Assessment: ICD-10-CM 1. S/P right knee arthroscopy Z98.890 Plan: She is doing well, continue PT to work on ROM, strengthening, and swelling control. She will use NSAIDS as needed for pain control. If She has any questions or issues She will contact the office. Follow up in 6 weeks for repeat evaluation. Voice recognition software was used for this note. I have edited this note but errors may occur documented in [facility] Surgical operation note* Erendira Gaspar RN - 06/28/2023 1:27 PM EDT Discharge instructions reviewed with pt and family at bedside. All voiced understanding. Discharge instructions given to pt. Discharged home in stable condition. Escorted to car via wheelchair by staff. Family driving. [facility]05-01-2024 Nurse Note* Erendira Gaspar RN - 06/28/2023 1:27 PM EDT Discharge instructions reviewed with pt and family at bedside. All voiced understanding. Discharge instructions given to pt. Discharged home in stable condition. Escorted to car via wheelchair by staff. Family driving. * Erendira Gaspar RN - 06/28/2023 12:17 PM EDT Crutch training completed. Pt voiced and demonstrated understanding. Stand by assist to commode. Gait steady. Pt voided without difficulty. * Constance Saldivar RN - 06/28/2023 11:44 AM EDT Patient transferred to [facility] via cart in stable condition. Report given to BROOKS Krishna. Cart leftin locked and lowest position with side rails up x2. Snack and call light given to patient. Monitors and alarms on and attached to patient. * Janet Castellanos RN - 06/28/2023 11:24 AM EDT Patient taken to PACU via cart with this RN and LANGUAGES AND LITERATURE INSTRUCTOR. Report given to BROOKS Nolasco. * Janet Castellanos RN - 06/28/2023 9:29 AM EDT OR temp 68.2 deg F OR humidity 44% documented in this [facility]05-01-2024 Nurse Surgical operation note* Erendira Gaspar RN - 06/28/2023 12:17 PM EDT Crutch training completed. Pt voiced and demonstrated understanding. Stand by assist to commode. Gait steady. Pt voided without difficulty. [facility]05-01-2024 Hospital Discharge instructions* Discharge Instructions* Erendira Gaspar RN - 06/28/2023 12:[address] Wolf's discharge instructions in the green folder provided for your detailed postoperative instructions. Anesthesia Precautions & Expectations: After anesthesia, rest for [address], drink alcoholic beverages or make any important decisions during this time. General anesthesia may cause a sore throat, jaw discomfort or muscle aches. These symptoms can last for one or two days. documented in this encounterMart[facility] Nurse Surgical operation note* Constance Saldivar RN - 06/28/2023 11:44 AM EDT Patient transferred to [facility] via cart in stable condition. Report given to BROOKS Krishna. Cart leftin locked and lowest position with side rails up x2. Snack and call light given to patient. Monitors and alarms on and attached to patient. [facility]05-01-2024 Surgery Postoperative evaluation and management note* Op Note - Silvia Wolf MD - 06/28/2023 11:31 AM EDT DATE OF SURGERY: 06/28/2023 PRE OPERATIVE DIAGNOSIS: Tear of medial meniscus of right knee, current, unspecified tear type, initial encounter [S83.241A] Primary osteoarthritis of right knee [M17.11] POST OPERATIVE DIAGNOSIS: Tear of medial meniscus of right knee, current, unspecified tear type, initial encounter [S83.241A] Primary osteoarthritis of right knee [M17.11] PROCEDURE: Procedure(s) (LRB): ARTHROSCOPY KNEE W/ MENISCECTOMY (Right) SURGEON Surgeons and Role: * Silvia Wolf MD - Primary ASSISTANTS: NONE ANESTHESIOLOGIST LANGUAGES AND LITERATURE INSTRUCTOR: Pio Rivera APRN-LANGUAGES AND LITERATURE INSTRUCTOR SURGICAL STAFF Supervisor Sewing Room: Janet Castellanos RN; Rocio Solis RN Weapons Specialist: Nuria Sánchez ANESTHESIA TYPE: General FLUIDS: Per anesthesia record. ESTIMATED BLOOD LOSS: Minimal INDICATIONS FOR PROCEDURE: The patient is a pleasant individual who we have been following in our orthopedic office for their knee pain. The MRI evidence along with some signs and symptoms were in agreement with the diagnosis, and the patient had failed conservative measures of treatment. They desired to undergo arthroscopic intervention, so we consented the patient with all risks and benefits explained and no guarantees or warrantees made. DESCRIPTION OF PROCEDURE: The patient was correctly identified in the preoperative holding area with the correct limb marked. They were brought back to the operating room and placed supine on a well-padded table with the operative leg in an arthroscopic leg oliveira and nonoperative leg in a well leg oliveira. The foot of the bed was dropped and they were prepped and draped in a standard sterile fashion. A timeout was performed and antibiotics administered. An #11 blade was used to make a stab incision in the superolateral aspect of the knee, and the inflow cannula was inserted and the knee filled with fluid. A standard anteromedial and anterolateral portals were then established. The camera was inserted into the knee, and the findings were as follows (the following represents the grade of cartilage wear in each compartment): Patella: II Trochlear Groove: I Medial Femoral Condyle: II Medial Tibial Plateau: II Lateral Femoral Condyle: 0 Lateral Tibial Plateau: 0 Intercondylar Notch: Intact ACL and PCL The medial meniscus was then evaluated and found to have a tear at the posterior horn. and body.. The meniscal tear was debrided using a shaver and meniscal biter down to a clean, smooth surface. Themeniscus was stable after debridement. The other components were inspected and found to be intact at the probing and visualization. The knee was again verified to not have any fragments, including inthe gutters, that were loose. I subsequently drained the fluid from the knee and closed the wounds using 3-0 nylon. The wounds were then injected with 1% lidocaine and 0.5% bupivacaine as well as theknee itself for a total of 20 cc. The wounds were then dressed using 4 x 4s, ABDs, soft roll, and Rahat wrap. The patient was then awakened and transferred off the table without incident. COMPLICATIONS None DRAINS: None. CONDITIONS: Stable to PACU. Silvia Wolf MD June 28, 2023 11:31 AM [facility] Work Phone: 1(728) 470-125805-01-2024 Surgery Postoperative evaluation and management note* Brief Op Note - Silvia Wolf MD - 06/28/2023 11:31 AM EDT See immediate full operative note. [employer] [id number] Miscellaneous Notes* Op Note - Silvia Wolf MD - 06/28/2023 11:31 AM EDT DATE OF SURGERY: 06/28/2023 PRE OPERATIVE DIAGNOSIS: Tear of medial meniscus of right knee, current, unspecified tear type, initial encounter [S83.241A] Primary osteoarthritis of right knee [M17.11] POST OPERATIVE DIAGNOSIS: Tear of medial meniscus of right knee, current, unspecified tear type, initial encounter [S83.241A] Primary osteoarthritis of right knee [M17.11] PROCEDURE: Procedure(s) (LRB): ARTHROSCOPY KNEE W/ MENISCECTOMY (Right) SURGEON Surgeons and Role: * Silvia Wolf MD - Primary ASSISTANTS: NONE ANESTHESIOLOGIST LANGUAGES AND LITERATURE INSTRUCTOR: Pio Rivera APRN-LANGUAGES AND LITERATURE INSTRUCTOR SURGICAL STAFF Supervisor Sewing Room: Janet Castellanos RN; Rocio Solis RN Weapons Specialist: Nuria Sánchez ANESTHESIA TYPE: General FLUIDS: Per anesthesia record. ESTIMATED BLOOD LOSS: Minimal INDICATIONS FOR PROCEDURE: The patient is a pleasant individual who we have been following in our orthopedic office for their knee pain. The MRI evidence along with some signs and symptoms were in agreement with the diagnosis, and the patient had failed conservative measures of treatment. They desired to undergo arthroscopic intervention, so we consented the patient with all risks and benefits explained and no guarantees or warrantees made. DESCRIPTION OF PROCEDURE: The patient was correctly identified in the preoperative holding area with the correct limb marked. They were brought back to the operating room and placed supine on a well-padded table with the operative leg in an arthroscopic leg oliveira and nonoperative leg in a well leg oliveira. The foot of the bed was dropped and they were prepped and draped in a standard sterile fashion. A timeout was performed and antibiotics administered. An #11 blade was used to make a stab incision in the superolateral aspect of the knee, and the inflow cannula was inserted and the knee filled with fluid. A standard anteromedial and anterolateral portals were then established. The camera was inserted into the knee, and the findings were as follows (the following represents the grade of cartilage wear in each compartment): Patella: II Trochlear Groove: I Medial Femoral Condyle: II Medial Tibial Plateau: II Lateral Femoral Condyle: 0 Lateral Tibial Plateau: 0 Intercondylar Notch: Intact ACL and PCL The medial meniscus was then evaluated and found to have a tear at the posterior horn. and body.. The meniscal tear was debrided using a shaver and meniscal biter down to a clean, smooth surface. Themeniscus was stable after debridement. The other components were inspected and found to be intact at the probing and visualization. The knee was again verified to not have any fragments, including inthe gutters, that were loose. I subsequently drained the fluid from the knee and closed the wounds using 3-0 nylon. The wounds were then injected with 1% lidocaine and 0.5% bupivacaine as well as theknee itself for a total of 20 cc. The wounds were then dressed using 4 x 4s, ABDs, soft roll, and Rahat wrap. The patient was then awakened and transferred off the table without incident. COMPLICATIONS None DRAINS: None. CONDITIONS: Stable to PACU. Silvia Wolf MD June 28, 2023 11:31 AM * Brief Op Note - Silvia Wolf MD - 06/28/2023 11:31 AM EDT See immediate full operative note. documented in this [facility]05-01-2024 Nurse Surgical operation note* Janet Castellanos RN - 06/28/2023 11:24 AM EDT Patient taken to PACU via cart with this RN and LANGUAGES AND LITERATURE INSTRUCTOR. Report given to BROOKS Nolasco. [facility]05-01-2024 Nurse Surgical operation note* Janet Castellanos RN - 06/28/2023 9:29 AM EDT OR temp 68.2 deg F OR humidity 44% [facility]04-15-2024 History of Present illness Narrative* Hi Turner, GARRET-SELVIN - 06/12/2023 9:40 AM EDT Orthopedics and Sports Medicine Chief Complaint Patient presents with Pre-op Exam Right knee arthroscopy, partial medial meniscectomy, and other interventions as needed HPI: She presents for right knee surgery H and P. She states that symptoms remain the same she wishes toproceed with surgery. Denies any recent fever chills. Denies any other issues or concerns To recap previous visit: Patient presents in follow-up for right knee pain. MRI completed on 04/12/2023. She is here today to discuss options for the knee. Patient states that she had a sudden acutely occurring knee pain in January of 2023 that has worsened as of recently. The patient states that she has swelling as well as sharp stabbing pains along the medial joint line and with ambulating up and down stairs. She is here today to discuss options as she is no longer able to function on a daily basis as she once could. She is unable to complete her activities of daily living as she wants could do to level of pain. She is here today to discuss options for the right knee. Allergies Allergen Reactions Sulfamethoxazole-Trimethoprim Avocado Nausea and Vomiting Demerol Hcl [Meperidine] Sulfa Antibiotics Family History Problem Relation Age of Onset Cancer- Other Mother Heart Disease - Other Father Cancer- Other Father Social History Socioeconomic History Marital status: Tobacco Use Smoking status: Never Smokeless tobacco: Never Vaping Use Vaping status: Never Used Substance and Sexual Activity Alcohol use: Never Drug use: Never Other Topics Concern Domestic Violence No Past Medical History: Diagnosis Date Arrhythmia heart murmer and RBB Known health problems: none Past Surgical History: Procedure Laterality Date ARTHROSCOPY KNEE W/ MENISCECTOMY Left 03/14/2019 Laterality: Left; Surgeon: Silvia Wolf MD; Location: [facility] 2014 APPENDECTOMY 1979 OOPHORECTOMY LAPAROSCOPIC Left 1975 Vitals: 06/12/23 0938 BP: 132/86 Temp: 98 degrees F (36.7 degrees C) TempSrc: Temporal Weight: 78 kg (172 lb) Height: 1.727 m (5' 8) Physical Exam: Knee Exam: right ROM: 0-130. Quad tone: good. Calf supple and nontender. Mild effusion. Palpation: medial joint line tenderness, nontender laterally Katie's: Negative Posterior Drawer: Negative Varus/Valgus stress: Negative Michi's: Positive Patellar apprehension: Negative Patellar compression: Negative Distally neurovascular intact with 2+ DP pulse and full sensation in the DP/SP/Tibial nerve distributions. Assessment: ICD-10-CM 1. Primary osteoarthritis of right knee M17.11 2. Other tear of medial meniscus of right knee as current injury, initial encounter S83.241A Plan: At this time, we have reviewed the past medical notes pertaining to her chief complaint today, as well as her MRI which shows an oblique longitudinal undersurface tear of the medial meniscus body, aswell as intermediate chondral fissuring in the medial, lateral and patellofemoral compartment. She shows signs of this on exam as well as patellar tendonitis. We have discussed options with the patient today from conservative to surgical. She has failed conservative options to date including cidd-vyj-jqsmylk pain medication as well as home therapy exercises. Due to this, we are offering her a right knee arthroscopy, partial medial meniscectomy, and other interventions as needed. We have discusse d with the patient that this should help with the sharp stabbing pains associated with a meniscus tearing but not the dull achy pains associated with the underlying knee OA as well as patellar tendonitis. She is elected to proceed with surgery at this time. She is understanding of all this at this time. She is scheduled for this in the near future. She will need PCP clearance prior to surgical intervention. She will call the office with any questions or concerns in the meantime. Consent: Both Surgical and Non-surgical methods of treatment were discussed with the patient and they have elected to proceed with surgery. The risks and benefits were thoroughly explained including but not limited to: infection, bleeding, neurovascular damage, blood clots which may lead to pulmonary embolism, the need for further surgery stroke, and . It was also explained that the goal of surgery is to correct structural abnormalities that may be resulting in their pain but may not get rid of allthe pain they are experiencing. At this time, the patients quality of life has decreased with the pain they are experiencing and they cannot perform daily functions. The patient voiced full understanding and wishes to proceed with surgery. They will be scheduled in the near future. Right knee arthroscopy, partial medial meniscectomy, and other interventions as needed documented in this [facility]04-04-2024 History of Present illness Narrative* Angela Carbajal RN - 06/01/2023 7:50 AM EDT Images from the original note were not included. Maurice Avilez Female, 63 y.o., 1960 (M) DO Román Reeves RN Cc: Monalisa Mena RN; Angela Carbajal RN Reviewed and may proceed Previous Messages ----- Message ----- From: Román Pal RN Sent: 05/31/2023 2:16 PM EDT To: Monalisa Mena RN; Angela Carbajal RN; * Please review abnormal EKG and advise. Thank you documented in this [facility]02-26-2024 History of Present illness Narrative* Joby Londono ATC - 04/24/2023 3:20 PM EST Orthopedics and Sports Medicine Chief Complaint Patient presents with MRI Results Right knee MRI completed 04/12/23. Here to discuss next steps. HPI: Patient presents in follow-up for right knee pain. MRI completed on 04/12/2023. She is here today to discuss options for the knee. Patient states that she had a sudden acutely occurring knee pain in January of 2023 that has worsened as of recently. The patient states that she has swelling as well as sharp stabbing pains along the medial joint line and with ambulating up and down stairs. She is here today to discuss options as she is no longer able to function on a daily basis as she once could. She is unable to complete her activities of daily living as she wants could do to level of pain. She is here today to discuss options for the right knee. To recap previous visit: The patient is a pleasant 63 y.o. year old female with a complaint of right knee pain. She had a sudden onset of pain in January 2023. She was increasing activity with exercises and developed pain and swelling along the medial aspect of the knee. The swelling has been improving, but she has sharp and stabbing pains along the medial aspect of the knee with going down stairs and standing. Denies any aching pain. Allergies Allergen Reactions Sulfamethoxazole-Trimethoprim Demerol Hcl [Meperidine] Sulfa Antibiotics Family History Problem Relation Age of Onset Cancer- Other Mother Heart Disease - Other Father Cancer- Other Father Social History Socioeconomic History Marital status: Tobacco Use Smoking status: Never Smokeless tobacco: Never Vaping Use Vaping status: Never Used Substance and Sexual Activity Alcohol use: Never Drug use: Never Other Topics Concern Domestic Violence No Past Medical History: Diagnosis Date Arrhythmia heart murmer and RBB Known health problems: none Past Surgical History: Procedure Laterality Date ARTHROSCOPY KNEE W/ MENISCECTOMY Left 03/14/2019 Laterality: Left; Surgeon: Silvia Wolf MD; Location: [facility]STIC 2014 APPENDECTOMY 1978 OOPHORECTOMY LAPAROSCOPIC Left 1975 Vitals: 04/24/23 1510 Weight: 76.7 kg (169 lb) Height: 1.727 m (5' 8) Physical Exam: Knee Exam: right ROM: 0-130. Quad tone: good. Calf supple and nontender. Mild effusion. Palpation: medial joint line tenderness, nontender laterally Katie's: Negative Posterior Drawer: Negative Varus/Valgus stress: Negative Michi's: Positive Patellar apprehension: Negative Patellar compression: Negative Distally neurovascular intact with 2+ DP pulse and full sensation in the DP/SP/Tibial nerve distributions. Assessment: ICD-10-CM 1. Other tear of medial meniscus of right knee as current injury, initial encounter S83.241A 2. Primary osteoarthritis of right knee M17.11 Plan: At this time, we have reviewed the past medical notes pertaining to her chief complaint today, as well as her MRI which shows an oblique longitudinal undersurface tear of the medial meniscus body, aswell as intermediate chondral fissuring in the medial lateral and patellofemoral compartment. She shows signs of this on exam as well as patellar tendonitis. We have discussed options with the patient today from conservative to surgical. She has failed conservative options to date including dhvl-qnt-mvatysq pain medication as well as home therapy exercises. Due to this, we are offering her a right knee arthroscopy, partial medial meniscectomy, and other interventions as needed. We have discussed with the patient that this should help with the sharp stabbing pains associated with a meniscus tearing but not the dull achy pains associated with the underlying knee OA as well as patellar tendonitis. She is elected to proceed with surgery at this time. She is understanding of all this at this time. She will schedule for this in the near future. She will need PCP clearance prior to surgical intervention. She will follow up in office within 30 days of surgery if needed. Call the office with any questions or concerns in the meantime. Consent: Both Surgical and Non-surgical methods of treatment were discussed with the patient and they have elected to proceed with surgery. The risks and benefits were thoroughly explained including but not limited to: infection, bleeding, neurovascular damage, blood clots which may lead to pulmonary embolism, the need for further surgery stroke, and . It was also explained that the goal of surgery is to correct structural abnormalities that may be resulting in their pain but may not get rid of allthe pain they are experiencing. At this time, the patients quality of life has decreased with the pain they are experiencing and they cannot perform daily functions. The patient voiced full understanding and wishes to proceed with surgery. They will be scheduled in the near future. Right knee arthroscopy, partial medial meniscectomy, and other interventions as needed * Silvia Wolf MD - 04/24/2023 3:20 PM EST Orthopedics and Sports Medicine Chief Complaint Patient presents with MRI Results Right knee MRI completed 04/12/23. Here to discuss next steps. HPI: Patient presents in follow-up for right knee pain. MRI completed on 04/12/2023. She is here today to discuss options for the knee. Patient states that she had a sudden acutely occurring knee pain in January of 2023 that has worsened as of recently. The patient states that she has swelling as well as sharp stabbing pains along the medial joint line and with ambulating up and down stairs. She is here today to discuss options as she is no longer able to function on a daily basis as she once could. She is unable to complete her activities of daily living as she wants could do to level of pain. She is here today to discuss options for the right knee. To recap previous visit: The patient is a pleasant 63 y.o. year old female with a complaint of right knee pain. She had a sudden onset of pain in January 2023. She was increasing activity with exercises and developed pain and swelling along the medial aspect of the knee. The swelling has been improving, but she has sharp and stabbing pains along the medial aspect of the knee with going down stairs and standing. Denies any aching pain. Allergies Allergen Reactions Sulfamethoxazole-Trimethoprim Demerol Hcl [Meperidine] Sulfa Antibiotics Family History Problem Relation Age of Onset Cancer- Other Mother Heart Disease - Other Father Cancer- Other Father Social History Socioeconomic History Marital status: Tobacco Use Smoking status: Never Smokeless tobacco: Never Vaping Use Vaping status: Never Used Substance and Sexual Activity Alcohol use: Never Drug use: Never Other Topics Concern Domestic Violence No Past Medical History: Diagnosis Date Arrhythmia heart murmer and RBB Known health problems: none Past Surgical History: Procedure Laterality Date ARTHROSCOPY KNEE W/ MENISCECTOMY Left 03/14/2019 Laterality: Left; Surgeon: Silvia Wolf MD; Location: [facility] 2014 APPENDECTOMY 1979 OOPHORECTOMY LAPAROSCOPIC Left 1975 Vitals: 04/24/23 1510 Weight: 76.7 kg (169 lb) Height: 1.727 m (5' 8) Physical Exam: Knee Exam: right ROM: 0-130. Quad tone: good. Calf supple and nontender. Mild effusion. Palpation: medial joint line tenderness, nontender laterally Katie's: Negative Posterior Drawer: Negative Varus/Valgus stress: Negative Michi's: Positive Patellar apprehension: Negative Patellar compression: Negative Distally neurovascular intact with 2+ DP pulse and full sensation in the DP/SP/Tibial nerve distributions. Assessment: ICD-10-CM 1. Other tear of medial meniscus of right knee as current injury, initial encounter S83.241A 2. Primary osteoarthritis of right knee M17.11 Plan: At this time, we have reviewed the past medical notes pertaining to her chief complaint today, as well as her MRI which shows an oblique longitudinal undersurface tear of the medial meniscus body, aswell as intermediate chondral fissuring in the medial lateral and patellofemoral compartment. She shows signs of this on exam as well as patellar tendonitis. We have discussed options with the patient today from conservative to surgical. She has failed conservative options to date including frui-vcc-bzswcbx pain medication as well as home therapy exercises. Due to this, we are offering her a right knee arthroscopy, partial medial meniscectomy, and other interventions as needed. We have discussed with the patient that this should help with the sharp stabbing pains associated with a meniscus tearing but not the dull achy pains associated with the underlying knee OA as well as patellar tendonitis. She is elected to proceed with surgery at this time. She is understanding of all this at this time. She will schedule for this in the near future. She will need PCP clearance prior to surgical intervention. She will follow up in office within 30 days of surgery if needed. Call the office with any questions or concerns in the meantime. Consent: Both Surgical and Non-surgical methods of treatment were discussed with the patient and they have elected to proceed with surgery. The risks and benefits were thoroughly explained including but not limited to: infection, bleeding, neurovascular damage, blood clots which may lead to pulmonary embolism, the need for further surgery stroke, and . It was also explained that the goal of surgery is to correct structural abnormalities that may be resulting in their pain but may not get rid of allthe pain they are experiencing. At this time, the patients quality of life has decreased with the pain they are experiencing and they cannot perform daily functions. The patient voiced full understanding and wishes to proceed with surgery. They will be scheduled in the near future. Right knee arthroscopy, partial medial meniscectomy, and other interventions as needed YOLANDE Downs was acting as a scribe today for this note. I have performed all essential components of the history, and physical exam. I have confirmed the diagnosis and developed a plan of care atthis visit. I have reviewed the note following the visit and have add edits as appropriate to my evaluation and plan of care. Silvia Wolf MD [facility] History of Present illness Narrative* Hi Tyrone, DERRICK BOAT CAPTAIN-GROUNDS AND NURSERY SPECIALIST - 03/10/2023 10:20 AM EST Orthopedics and Sports Medicine Chief Complaint Patient presents with Knee Pain Right knee - Xrays completed in office today. Patient states that she has been having pain in the knee since January of 2023. Patients does not recall any specific injury but is physically active. Patients states that she has been having some intermittent swelling that has been improving. Pain is worse when ambulating down stairs. HPI: The patient is a pleasant 63 y.o. year old female with a complaint of right knee pain. She had a sudden onset of pain in January 2023. She was increasing activity with exercises and developed pain and swelling along the medial aspect of the knee. The swelling has been improving, but she has sharp and stabbing pains along the medial aspect of the knee with going down stairs and standing. Denies any aching pain. Vitals: 03/10/23 1025 Temp: 97.8 degrees F (36.6 degrees C) TempSrc: Temporal Weight: 76.7 kg (169 lb) Height: 1.727 m (5' 8) Physical Exam: Knee Exam: right ROM: 0-130. Quad tone: good. Calf supple and nontender. Mild effusion. Palpation: medial joint line tenderness, nontender laterally Katie's: Negative Posterior Drawer: Negative Varus/Valgus stress: Negative Michi's: Positive Patellar apprehension: Negative Patellar compression: Negative Distally neurovascular intact with 2+ DP pulse and full sensation in the DP/SP/Tibial nerve distributions. Assessment: ICD-10-CM 1. Right knee pain, unspecified chronicity M25.561 2. Sprain of right knee, unspecified ligament, initial encounter S83.91XA Plan: At this time, we have reviewed her right knee x-rays which shows mild knee OA. The patient has signs and symptoms which may point to internal derangement of the knee. Given that we will order an MRI to evaluate. After approval of the MRI, they will follow-up with us a day or two after for repeat evaluation and treatment considerations. If there are any questions in the meantime they will contact the clinic. Otherwise follow-up after the MRI. I recommend continued NSAIDs and ice for any pain andswelling for now. Voice recognition software was used for this note. I have edited this note but errors may occur documented in this [facility] NotePap Smear Specimen AdequacyFebruary 2022 11:10amComment.Satisfactory for evaluation. Endocervical and/or squamous metaplasticcells (endocervical component)are present.[facility] INTERFACED A#[id number] Medical Special[facility] - [facility]-FairhillComment on above: Satisfactory for evaluation. Endocervical and/or squamous metaplasticcells (endocervical component)are present.04-13-2022 NotePap Smear Specimen Adequacy April 13, 2022 12:10pmComment.Satisfactory for evaluation. Endocervical and/or squamous metaplasticcells (endocervical component)are present.[facility] INTERFACED A#[id number] Medical Specialty Hospital - Cleveland-FairhillComment on above:Satisfactory for evaluation. Endocervical and/or squamous metaplasticcells (endocervical component)are present.Evaluation note* Diagnosis Onset Date Resolution Status Atrophic vaginitis acute Encounter for routine gynecological examination noneactive [facility] Work Phone: Evaluation note* Diagnosis Right knee pain, unspecified chronicity- Primary Sprain of right knee, unspecified ligament, initial encounter Right knee pain, unspecified chronicity [facility]* Diagnosis Sprain of right knee, unspecified ligament, initial encounter [facility] Diagnosis Other tear of medial meniscus of right knee as current injury, initial encounter- Primary Primary osteoarthritis of right knee Primary localized osteoarthrosis, lower leg [facility] Diagnosis Primary osteoarthritis of right knee- Primary Primary localized osteoarthrosis, lower leg Other tear of medial meniscus of right knee as current injury, initial encounter Tear of medial meniscus of right knee, current, unspecified tear type, initial encounter Primary osteoarthritis of right knee Primary localized osteoarthrosis, lower leg documented in this [facility]Eval[facility] [place] [facility]* Diagnosis S/P right knee arthroscopy- Primary Other postprocedural status documented in this encounter [facility] [place] [facility]* Diagnosis S/P right knee arthroscopy- Primary Other postprocedural status documented in this encounter [facility] [place] [facility]* Diagnosis S/P right knee arthroscopy- Primary Other postprocedural status documented in this encounter [facility]un[facility] [place] [facility]* Diagnosis Impacted cerumen of left ear- Primary Impacted cerumen Acute swimmer's ear of left side documented in this encounter [facility] Work Phone: Reason for referral (narrative)No reason for referral information availableWChildren's Hospital of [facility] Work Phone: Reason for Referral Status Reason Specialty Diagnoses / Procedures Referred By Contact Referred To Contact Closed Magnetic Resonan ce Imaging Diagnoses Other specified joint disorders, unspecified joint Procedures MRI KNEE LEFT WITHOUT CONTRAST MO MRI LOWER EXTREM JT, W/O CONTRAST Sedrick Royal, [address] [place] [id number] Jhon[facility] [address] [place] [id number] Status Reason Specialty Diagnoses / Procedures Referred By Contact Referred To Contact New Request Diagnoses Acute pain of left knee Procedures XR KNEE LEFT 3 VIEWS Sedrick Royal, [address] [place] [id number] Status Reason Specialty Diagnoses / Procedures Referred By Contact Referred To Contact New Request Orthopaedics Diagnoses Complex tear of medial meniscus of left knee as current injury, subsequent encounter Sedrick Royal, [address] [place] [id number] Silvia Wolf MD [address] [facility] [address] [place] [id number] Status Reason Specialty Diagnoses / Procedures Referred By Contact Referred To Contact Auth Not Needed Physical Therapy Diagnoses S/P left knee arthroscopy Hi Turner, DERRICK [employer]AT [employer] SPECIALIST [address] [place] [id number] [facility] [place] [address] [id number] Scheduling Instructions . Specialty Diagnoses / Procedures Referred By Contac t Referred To Contact Diagnoses Sprain of right knee, unspecified ligament, initial encounter Procedures MRI KNEE RIGHT WITHOUT CONTRAST MO MRI LOWER EXTREM JT, W/O CONTRAST Hi uTrner, DERRICK [employer]AT [employer] NURSERY SPECIALIST [address] [place] [phone] Referral ID Status Reason Start Date Expiration Date V isits Requested Visits Authorized [id number] New Request 03/10/2023 04/03/2024 1 1 Referral ID Status Reason Start Date Expiration Date Visits Re quested Visits Authorized [id number] Closed 03/10/2023 04/03/2024 1 1 History of Present Illness * Sedrick Royal, - 01/02/2019 9:45 AM EST 01/02/19 Subjective: Patient complains of left knee pain around the kneecap. She also has some stiffness of the left knee. She can't kneel on her left knee any longer. She states all of this began about 2 months ago and has gotten progressively worse. She is an active 58-year old lady who works out regular and does yoga several times a week, and she noticed she was getting stiffness of her left knee and couldn't flex her left knee to do some of her yoga positions. The pain and stiffness grew steadily worse. She hasn't seen true swelling of the left knee or left lowe leg. She denies numbness. She is starting to feel functionally weak and occasionally limping on the left lower extremity. She has most of the pain at the anterior knee and most of the pain is apparent when she rests for a while and then gets up and starts moving. She denies any other arthralgias and regularly does not have problems with musculoskeletal pain up until about 2 months ago. Objective: Patient is alert and oriented x 3. Normal mood and affect. Good historian. She has a nonantalgic gait. She does not appear to be in pain at all with walking. Examination of the left knee shows no pain or laxity with varus or valgus stress. Good endpoint on Katie's test. Michi's test is positive causing pain at the posterior/medial knee right at the joint line. She has questionable mild swelling or mild effusion of the left knee. She has a decreasedrange of motion passively with 0 degrees of extension, 120 degrees of flexion with significant painat the extremes of flexion of the left knee only. There is no warmth, erythema of the overlying skin. No bruising. She does have mild patellofemoral crepitus with left knee movement actively or passively. Examination of the left lower leg reveals no pretibial edema, no calf tenderness. Examination of the right knee for comparison shows mild patellofemoral crepitus with a passive range of motion of 0-165 degrees with no pain at the extremes of flexion. No tenderness or other remarkable findings of the right knee. Diagnostic Studies: 3 view left knee series showed the right knee on sunrise and AP views. Overall the patient had narrowing of the medial compartments bilaterally, overall mild. She has narrowing ofthe patellofemoral compartments bilaterally that is mild. No significant spurring or acute osseous injury of the left knee. Soft tissues are questionably remarkable for slight signs of effusion radiographically. Medical Decision Making/Plan: Physical exam is indicative of an acute meniscal tear. This patient may have some underlying arthritis, but certainly her restricted range of motion here and positive Michi's test is suggestive of a possible internal derangement in the form of a meniscal tear, and Ithink an MRI is warranted. I will order that. I would like her to stay off of the left lower extremity as much as possible. I don't want her doing weight bearing exercise until we get the results of the MRI. I will see her back in 2-3 weeks to discuss the results of the MRI and formulate a treatment plan going forward. I suggested [id number] Advil or Tylenol as needed for pain. She was given appropriate verbal warnings. Diagnosis: 1. Acute pain of left knee 2. Other specified joint disorders, unspecified joint * Bridgette Carreno - 01/02/2019 9:45 AM EST Review of Systems Constitutional: Negative for chills and fever. Cardiovascular: Negative for chest pain and lower extremity swelling. Musculoskeletal: Positive for arthralgia, left knee. Neurological: Negative for dizziness and numbness. Hematological: Does not bruise/bleed easily. documented in this encounter* Sedrick Royal DO - 01/22/2019 1:30 PM EST 01/22/19 Subjective: Patient returns for reevaluation of her left knee and states she is still having significant functional weakness for prolonged ambulation with occasional limping on the left lower extremity. She can't crouch down and do a deep knee bend under her body weight. She states it hurts too badto so do and she has pain with pivoting along the medial posterior knee. Her knee also seems swollen in the popliteal region. Things have not changed much since she was last here. Objective: Examination of the left knee shows no pain or laxity with varus and valgus stress. Michi's test is positive causing considerable posteromedial left knee pain. She does not appear to have significant effusion, but she does have a palpable popliteal cyst that is mildly tender at the posterior aspect of the left knee. She has moderate medial joint line tenderness. Active extension is alag of 5 degrees with active flexion of 110 degrees. Passively I can take her to 0 degrees of extension with slight discomfort and 120 degrees of flexion with significant pain. There is no warmth, erythema or bruising. She has minimal patellofemoral crepitus of the left knee. Examination of the left lower leg reveals no calf tenderness and no pretibial edema. The overlying skin appears to be normal. Diagnostic Studies: Today we discussed her MRI of the left knee which showed a complex tear of the posterior horn of the medial meniscus. There is joint effusion noted with a partially ruptured fairly large elias's cyst. There is tricompartmental chondrosis most significant in the medial compartment with no significant osteophytes seen per radiologist. Medical Decision Making/Plan: This patient has a symptomatic meniscal tear in my clinical opinion. At this point I am going to refer her for surgical intervention. I didn't think a corticosteroid injection would be of great benefit given her symptoms on physical exam. She was referred to Dr. Wolf. She can take Tylenol as needed for pain and avoid painful weight bearing activities as much as possible. She was given appropriate verbal warnings. Diagnosis: 1. Complex tear of medial meniscus of left knee as current injury, subsequent encounter * Taty Verma - 01/22/2019 1:30 PM EST Review of Systems Constitutional: Negative for chills, fatigue and fever. Cardiovascular: Negative for leg swelling. Musculoskeletal: Positive for arthralgias. Negative for back pain, joint swelling, myalgias and neck pain. Skin: Negative for rash. Neurological: Negative for weakness and numbness. Hematological: Does not bruise/bleed easily. documented in this encounter* Alexis Foreman PA - 03/07/2019 8:45 AM EST History of Present Illness New Patient Last PCP & Labs: about 1 year ago Conditions: none Specialists: [employer] (Graciela Bhatti) Colonoscopy: Magy, 5 years ago, normal Mammogram: annual thru [employer], normal Pre-Operative Examination Maurice Avilez (1960) presents today for a pre-operative examination. Patient is having left knee surgery by Dr. Wolf on 03/14/19. Current symptoms include left knee pain. Chronic conditions include none. Patient has tolerated anesthesia well in the past. No history of blood clotting or bleeding disorders. Pre-operative testing: yesterday. Past History Past medical, surgical, family, and social histories have been reviewed and updated with the patient today and are located elsewhere in the medical record. Ear Fullness Maurice Avilez presents today for evaluation of ear fulless. Onset: 1 week. Severity: mild. Status: fair. Frequency: daily. Location: right ear. Quality: fullness. Aggravating factors: none. Alleviating factors: none. Denies ear pain, discharge, fever, chills, or sweats. Review of Systems Constitutional: Negative for chills, diaphoresis, fatigue and fever. HENT: Negative for congestion, dental problem, drooling, ear discharge, ear pain, facial swelling, hearing loss, mouth sores, nosebleeds, postnasal drip, rhinorrhea, sinus pressure, sinus pain, sneezing, sore throat, tinnitus, trouble swallowing and voice change. See hpi Eyes: Negative. Respiratory: Negative for cough, shortness of breath and wheezing. Cardiovascular: Negative for chest pain, palpitations and leg swelling. Gastrointestinal: Negative for abdominal pain and blood in stool. Genitourinary: Negative for dysuria. Musculoskeletal: Positive for arthralgias. Negative for back pain. Skin: Negative for rash. Neurological: Negative for dizziness and headaches. Hematological: Negative for adenopathy. Does not bruise/bleed easily. Psychiatric/Behavioral: Negative for self-injury, sleep disturbance and suicidal ideas. The patientis not nervous/anxious. Vitals: Blood pressure 132/76, pulse 72, temperature 98.5 F (36.9 C), temperature source Oral, resp. rate 16, height 1.727 m (5' 8), weight 73 kg (161 lb), SpO2 98 %. Physical Exam Vitals signs and nursing note reviewed. Constitutional: Appearance: Normal appearance. HENT: Right Ear: Tympanic membrane and external ear normal. No decreased hearing noted. No mastoid tenderness. Left Ear: Hearing, tympanic membrane, ear canal and external ear normal. No decreased hearing noted. No mastoid tenderness. Ears: Comments: Mild erythema and edema in the right ear canal. Eyes: Pupils: Pupils are equal, round, and reactive to light. Neck: Musculoskeletal: Normal range of motion. Thyroid: No thyromegaly. Cardiovascular: Rate and Rhythm: Normal rate and regular rhythm. Pulses: Carotid pulses are 2+ on the right side and 2+ on the left side. Radial pulses are 2+ on the right side and 2+ on the left side. Heart sounds: Normal heart sounds. No murmur. Comments: No carotid bruit appreciated. Pulmonary: Effort: Pulmonary effort is normal. No respiratory distress. Breath sounds: Normal breath sounds. No stridor. No wheezing, rhonchi or rales. Abdominal: General: Bowel sounds are normal. Palpations: Abdomen is soft. Musculoskeletal: Left knee: She exhibits normal range of motion and no swelling. Tenderness found. Medial joint linetenderness noted. Skin: General: Skin is warm and dry. Findings: No bruising, erythema, lesion or rash. Neurological: General: No focal deficit present. Mental Status: She is alert and oriented to person, place, and time. Mental status is at baseline. Psychiatric: Mood and Affect: Mood normal. Behavior: Behavior normal. Thought Content: Thought content normal. Judgment: Judgment normal. Neurologic Exam Mental Status Oriented to person, place, and time. Cranial Nerves CN III, IV, Pupils are equal, round, and reactive to light. Assessment and Plan 1. Acute otitis externa of right ear, unspecified type - CBC, EDIF, PLATELET; Future - COMPREHENSIVE METABOLIC PANEL; Future - LIPID PANEL W CALCULATED LDL; Future - TSH W/FT4 REFLEX; Future - [id number] Suspension; Place 4 drops in right ear 3 times daily. Dispense: 1 Bottle; Refill: 0 2. Tear of medial meniscus of left knee, current, sequela - CBC, EDIF, PLATELET; Future - COMPREHENSIVE METABOLIC PANEL; Future - LIPID PANEL W CALCULATED LDL; Future - TSH W/FT4 REFLEX; Future 3. Preoperative examination - CBC, EDIF, PLATELET; Future - COMPREHENSIVE METABOLIC PANEL; Future - LIPID PANEL W CALCULATED LDL; Future - TSH W/FT4 REFLEX; Future 4. Routine general medical examination at a health care facility - CBC, EDIF, PLATELET; Future - COMPREHENSIVE METABOLIC PANEL; Future - LIPID PANEL W CALCULATED LDL; Future - TSH W/FT4 REFLEX; Future Medical Decision Making Tx mild otitis externa infection, get routine labs, stable for surgery based on H&P in office today, and follow up based on results, surgery, and as needed and annually. documented in this encounter* Silvia Wolf MD - 03/04/2019 9:40 AM EST Chief Complaint Patient presents with Knee Pain Left Knee. MRI completed on 01-15-2019. States she injured her knee in October, was playing volleyball on and uneven surface and the knee twisted. States the pain has gotten worser of time, no injections or therapy have been completed. HPI: Patient presents with Left knee pain. MRI completed on 01.15.19. States she injured her knee in October, was playing volleyball on an uneven surface and the knee twisted. States the pain has gottenworse over time. No injections or therapy have been completed. PMH: Past Medical History: Diagnosis Date Known health problems: none No past surgical history on file. Social History Socioeconomic History Marital status: Spouse name: Not on file Number of children: Not on file Years of education: Not on file Highest education level: Not on file Occupational History Not on file Social Needs Financial resource strain: Not on file Food insecurity: Worry: Not on file Inability: Not on file Transportation needs: Medical: Not on file Non-medical: Not on file Tobacco Use Smoking status: Never Smoker Smokeless tobacco: Never Used Substance and Sexual Activity Alcohol use: Not on file Drug use: Not on file Sexual activity: Not on file Lifestyle Physical activity: Days per week: Not on file Minutes per session: Not on file Stress: Not on file Relationships Social connections: Talks on phone: Not on file Gets together: Not on file Attends temple service: Not on file Active member of club or organization: Not on file Attends meetings of clubs or organizations: Not on file Relationship status: Not on file Intimate partner violence: Fear of current or ex partner: Not on file Emotionally abused: Not on file Physically abused: Not on file Forced sexual activity: Not on file Other Topics Concern Not on file Social History Narrative Not on file Sulfamethoxazole-trimethoprim; Demerol hcl [meperidine]; and Sulfa antibiotics History reviewed. No pertinent family history. ROS: Review of Systems System Neg/Pos Details Constitutional Negative Chills, fatigue, fever and night sweats. ENMT Negative Dysphagia, hearing loss, nasal congestion and vertigo. Eyes Negative Blurred vision and vision loss. Respiratory Negative Chest pain, cough, dyspnea, known TB exposure and wheezing. Cardio Negative Chest pain, cyanosis, heart murmur, irregular heartbeat/palpitations and syncope. GI Negative Abdominal pain, black tarry stools, constipation, diarrhea, heartburn, nausea and vomiting. Negative Dysuria, frequent urination, hematuria, nocturia and urinary incontinence. Endocrine Negative Weight gain and weight loss. Neuro Negative Difficulty walking, headache, paresthesia, poor coordination and seizures. Psych Negative Anxiety, depression and insomnia. Integumentary Negative Frequent skin infections, itching skin, rash and skin lesion. MS Negative Except as noted in HPI and chief complaint and muscle weakness. Maged/Lymph Negative Bruising and easy bleeding. Allergic/Immuno Negative Contact dermatitis, environmental allergies, food allergies, infections and seasonal allergies. Vitals: 03/04/19 0933 Temp: 97.7 degrees F (36.5 degrees C) Weight: 73.9 kg (163 lb) Height: 1.727 m (5' 8) Physical Exam: Exam Findings Details Constitutional * Level of distress - no acute distress. Nourishment - well nourished. Overall appearance - age appropriate. Head/Face Normal Facial features - Normal. Skull - Normal. Nasopharynx Comments Noraml cephalic, atraumatic Respiratory Normal Auscultation - Normal. Cough - Absent. Effort - Normal. Cardiovascular Normal Heart rate - Regular rate. Rhythm - Regular. Heart sounds - Normal S1, NormalS2. Extra sounds - None. Murmurs - None. Abdomen Normal Inspection - Normal. No abdominal tenderness. Abdomen * Auscultation - normal bowel sounds. Anterior palpation - no guarding. Skin * Inspection - General inspection: no rashes. Detailed inspection - Visual lesions: none. Rash- Description: none. Back/Spine Normal Lateral - No Kyphosis. Flexion - Normal. Extension - Normal. Back/Spine Comments negative kidney percussion Neurological Normal Level of consciousness - Normal. Orientation - Normal. Memory - Normal. Balance& gait - Normal. Hand dominance - Right-handed. Psychiatric Normal Orientation - Oriented to time, place, person & situation. Knee Exam: left ROM: 0-140. Quad tone: good. Calf supple and nontender. Mild effusion. Palpation: medial joint line tenderness, nontender laterally Katie's: Negative Posterior Drawer: Negative Varus/Valgus stress: Negative Michi's: Positive Patellar apprehension: Negative Patellar compression: Negative Distally neurovascular intact with 2+ DP pulse and full sensation in the DP/SP/Tibial nerve distributions. Uninvolved Knee Exam: ROM: 0-140. Quad tone good. Calf supple and non tender. No effusion. Katie's, posterior drawer, varus/valgus stress all negative. Non tender in the medial and lateraljoint lines. Michi's negative, no patellar apprehension, no patellar compression pain, Review of Images: See procedure note Assessment: ICD-10-CM 1. Acute medial meniscus tear of left knee, initial encounter S83.242A Plan: At this time, after review of the MRI, she does have a Left knee medial meniscus tear. She has signs of this on exam as well. Due to the nature of this injury and having failed conservative measures,we are offering her a Left knee arthroscopy, PMM, and other interventions as needed. She is electing to proceed with this surgical option at this time. She will schedule for this in the near future. She will need clearance by her PCP prior to surgery. We will see her within 30 days of surgery in office if needed. Call with any questions or concerns in the meantime. Consent: Both Surgical and Non-surgical methods of treatment were discussed with the patient and they have elected to proceed with surgery. The risks and benefits were thoroughly explained including but not limited to: infection, bleeding, neurovascular damage, blood clots which may lead to pulmonary embolism, the need for further surgery stroke, and . It was also explained that the goal of surgery are to correct structural abnormalities that may be resulting in his pain but may not get rid of all the pain they are experiencing. The patient voiced full understanding and wish to proceed with surgery. They will be scheduled in the near future. Left knee arthroscopy, PMM, and other interventions as needed YOLANDE Downs was acting as a scribe today for this note. I have performed all essential components of the history, and physical exam. I have confirmed the diagnosis and developed a plan of care atthis visit. I have reviewed the note following the visit and have add edits as appropriate to my evaluation and plan of care. Silvia Wolf MD * Joby Londono ATC - 03/04/2019 9:40 AM EST Chief Complaint Patient presents with Knee Pain Left Knee. MRI completed on 01-15-2019. States she injured her knee in October, was playing volleyball on and uneven surface and the knee twisted. States the pain has gotten worser of time, no injections or therapy have been completed. HPI: Patient presents with Left knee pain. MRI completed on 01.15.19. States she injured her knee in October, was playing volleyball on an uneven surface and the knee twisted. States the pain has gottenworse over time. No injections or therapy have been completed. PMH: Past Medical History: Diagnosis Date Known health problems: none No past surgical history on file. Social History Socioeconomic History Marital status: Spouse name: Not on file Number of children: Not on file Years of education: Not on file Highest education level: Not on file Occupational History Not on file Social Needs Financial resource strain: Not on file Food insecurity: Worry: Not on file Inability: Not on file Transportation needs: Medical: Not on file Non-medical: Not on file Tobacco Use Smoking status: Never Smoker Smokeless tobacco: Never Used Substance and Sexual Activity Alcohol use: Not on file Drug use: Not on file Sexual activity: Not on file Lifestyle Physical activity: Days per week: Not on file Minutes per session: Not on file Stress: Not on file Relationships Social connections: Talks on phone: Not on file Gets together: Not on file Attends temple service: Not on file Active member of club or organization: Not on file Attends meetings of clubs or organizations: Not on file Relationship status: Not on file Intimate partner violence: Fear of current or ex partner: Not on file Emotionally abused: Not on file Physically abused: Not on file Forced sexual activity: Not on file Other Topics Concern Not on file Social History Narrative Not on file Sulfamethoxazole-trimethoprim; Demerol hcl [meperidine]; and Sulfa antibiotics History reviewed. No pertinent family history. ROS: Review of Systems System Neg/Pos Details Constitutional Negative Chills, fatigue, fever and night sweats. ENMT Negative Dysphagia, hearing loss, nasal congestion and vertigo. Eyes Negative Blurred vision and vision loss. Respiratory Negative Chest pain, cough, dyspnea, known TB exposure and wheezing. Cardio Negative Chest pain, cyanosis, heart murmur, irregular heartbeat/palpitations and syncope. GI Negative Abdominal pain, black tarry stools, constipation, diarrhea, heartburn, nausea and vomiting. Negative Dysuria, frequent urination, hematuria, nocturia and urinary incontinence. Endocrine Negative Weight gain and weight loss. Neuro Negative Difficulty walking, headache, paresthesia, poor coordination and seizures. Psych Negative Anxiety, depression and insomnia. Integumentary Negative Frequent skin infections, itching skin, rash and skin lesion. MS Negative Except as noted in HPI and chief complaint and muscle weakness. Maged/Lymph Negative Bruising and easy bleeding. Allergic/Immuno Negative Contact dermatitis, environmental allergies, food allergies, infections and seasonal allergies. Vitals: 03/04/19 0933 Temp: 97.7 degrees F (36.5 degrees C) Weight: 73.9 kg (163 lb) Height: 1.727 m (5' 8) Physical Exam: Exam Findings Details Constitutional * Level of distress - no acute distress. Nourishment - well nourished. Overall appearance - age appropriate. Head/Face Normal Facial features - Normal. Skull - Normal. Nasopharynx Comments Noraml cephalic, atraumatic Respiratory Normal Auscultation - Normal. Cough - Absent. Effort - Normal. Cardiovascular Normal Heart rate - Regular rate. Rhythm - Regular. Heart sounds - Normal S1, NormalS2. Extra sounds - None. Murmurs - None. Abdomen Normal Inspection - Normal. No abdominal tenderness. Abdomen * Auscultation - normal bowel sounds. Anterior palpation - no guarding. Skin * Inspection - General inspection: no rashes. Detailed inspection - Visual lesions: none. Rash- Description: none. Back/Spine Normal Lateral - No Kyphosis. Flexion - Normal. Extension - Normal. Back/Spine Comments negative kidney percussion Neurological Normal Level of consciousness - Normal. Orientation - Normal. Memory - Normal. Balance& gait - Normal. Hand dominance - Right-handed. Psychiatric Normal Orientation - Oriented to time, place, person & situation. Knee Exam: left ROM: 0-140. Quad tone: good. Calf supple and nontender. Mild effusion. Palpation: medial joint line tenderness, nontender laterally Katie's: Negative Posterior Drawer: Negative Varus/Valgus stress: Negative Michi's: Positive Patellar apprehension: Negative Patellar compression: Negative Distally neurovascular intact with 2+ DP pulse and full sensation in the DP/SP/Tibial nerve distributions. Uninvolved Knee Exam: ROM: 0-140. Quad tone good. Calf supple and non tender. No effusion. Katie's, posterior drawer, varus/valgus stress all negative. Non tender in the medial and lateraljoint lines. Michi's negative, no patellar apprehension, no patellar compression pain, Review of Images: See procedure note Assessment: ICD-10-CM 1. Acute medial meniscus tear of left knee, initial encounter S83.242A Plan: At this time, after review of the MRI, she does have a Left knee medial meniscus tear. She has signs of this on exam as well. Due to the nature of this injury and having failed conservative measures,we are offering her a Left knee arthroscopy, PMM, and other interventions as needed. She is electing to proceed with this surgical option at this time. She will schedule for this in the near future. She will need clearance by her PCP prior to surgery. We will see her within 30 days of surgery in office if needed. Call with any questions or concerns in the meantime. Consent: Both Surgical and Non-surgical methods of treatment were discussed with the patient and they have elected to proceed with surgery. The risks and benefits were thoroughly explained including but not limited to: infection, bleeding, neurovascular damage, blood clots which may lead to pulmonary embolism, the need for further surgery stroke, and . It was also explained that the goal of surgery are to correct structural abnormalities that may be resulting in his pain but may not get rid of all the pain they are experiencing. The patient voiced full understanding and wish to proceed with surgery. They will be scheduled in the near future. Left knee arthroscopy, PMM, and other interventions as needed documented in this encounter* Hi Turner APRN-GROUNDS AND NURSERY SPECIALIST - 03/29/2019 9:20 AM EST Chief Complaint Patient presents with Post Op Visit 15 days s/p left knee arthroscopy with meniscectomy. The knee is feeling good, states the knee feels tight. Int herapy 3 days a week which is going well suture removed by nursing. HPI: She presents 15 days status post left knee arthroscopy, PMM. She states the knee is doing well. States that she has stiffness and tightness after sitting for a prolonged period of time. Currently therapy 3 days a week which is going well. Denies any fever or chills. Denies any pain. She is happy with her progress overall. PMH: Past medical history, family history, social history, allergies and medications have been reviewed and are documented in the electronic record. ROS: Review of Systems System Neg/Pos Details Constitutional Negative Chills, fatigue, fever and night sweats. ENMT Negative Dysphagia, hearing loss, nasal congestion and vertigo. Eyes Negative Blurred vision and vision loss. Respiratory Negative Chest pain, cough, dyspnea, known TB exposure and wheezing. Cardio Negative Chest pain, cyanosis, heart murmur, irregular heartbeat/palpitations and syncope. GI Negative Abdominal pain, black tarry stools, constipation, diarrhea, heartburn, nausea and vomiting. Negative Dysuria, frequent urination, hematuria, nocturia and urinary incontinence. Endocrine Negative Weight gain and weight loss. Neuro Negative Difficulty walking, headache, paresthesia, poor coordination and seizures. Psych Negative Anxiety, depression and insomnia. Integumentary Negative Frequent skin infections, itching skin, rash and skin lesion. MS Negative Except as noted in HPI and chief complaint and muscle weakness. Maged/Lymph Negative Bruising and easy bleeding. Allergic/Immuno Negative Contact dermatitis, environmental allergies, food allergies, infections and seasonal allergies. Vitals: 03/29/19 0853 Temp: 97.7 degrees F (36.5 degrees C) Weight: 73 kg (161 lb) Height: 1.727 m (5' 8) Physical Exam: Exam Findings Details Constitutional Normal No acute distress. Well developed. Head/Face Comments normal cephallic/ Atraumatic, negative spurling's maneuver Head/Face Normal Facial features - Normal. Skull - Normal. Hair and scalp - Normal. Respiratory Normal Cough - Absent. Effort - Normal. Skin * Detailed inspection - Visual lesions: none. Skin Comments other than as noted otherwise below in extremity exam Skin Normal Palpation/texture - Normal. Nails - Normal. Hair - Normal. Psychiatric Normal Orientation - Oriented to time, place, person & situation. Involved Lower Extremity: ROM: 3-100. Quad tone good. Calf supple and non tender. Mild effusion. Incisions healing nicely. No erythema. No drainage. Sutures removed. Steri strips placed. Distally neurovascularly intact with 2+ DP pulse and full sensation in the DP/SP/Tibial nerve distribution. Assessment: ICD-10-CM 1. S/P left knee arthroscopy Z98.890 Plan: She is doing well, continue PT to work on ROM, strengthening, and swelling control. She will use NSAIDS as needed for pain control. We discussed that the tightness she is experiencing is related to swelling and will improve as the swelling decreases. If She has any questions or issues She will contact the office. Follow up in 4 weeks for repeat evaluation. We discussed that she has minimal knee OA documented in this encounter* Hi Turner APRN-CNP - 04/29/2019 8:00 AM EST Chief Complaint Patient presents with Post Op Visit 6 weeks s/p left knee arthroscopy with meniscectomy. The knee is feeling tight, no pain and is feeling good today. In therapy 2-3 days a week which will end this week. HPI: She presents 6 weeks status post left knee arthroscopy, PMM. States the knee is feeling tight. States the tightness is worse with going downstairs. Currently therapy to 3 days week which is going well. Denies any pain. Denies any other issues or concerns. She is slowly progressing as tolerated intoactivities. PMH: Past medical history, family history, social history, allergies and medications have been reviewed and are documented in the electronic record. ROS: Review of Systems System Neg/Pos Details Constitutional Negative Chills, fatigue, fever and night sweats. ENMT Negative Dysphagia, hearing loss, nasal congestion and vertigo. Eyes Negative Blurred vision and vision loss. Respiratory Negative Chest pain, cough, dyspnea, known TB exposure and wheezing. Cardio Negative Chest pain, cyanosis, heart murmur, irregular heartbeat/palpitations and syncope. GI Negative Abdominal pain, black tarry stools, constipation, diarrhea, heartburn, nausea and vomiting. Negative Dysuria, frequent urination, hematuria, nocturia and urinary incontinence. Endocrine Negative Weight gain and weight loss. Neuro Negative Difficulty walking, headache, paresthesia, poor coordination and seizures. Psych Negative Anxiety, depression and insomnia. Integumentary Negative Frequent skin infections, itching skin, rash and skin lesion. MS Negative Except as noted in HPI and chief complaint and muscle weakness. Maged/Lymph Negative Bruising and easy bleeding. Allergic/Immuno Negative Contact dermatitis, environmental allergies, food allergies, infections and seasonal allergies. Vitals: 04/29/19 0810 Temp: 97.7 degrees F (36.5 degrees C) Weight: 74.4 kg (164 lb 2 oz) Height: 1.727 m (5' 8) Physical Exam: Exam Findings Details Constitutional Normal No acute distress. Well developed. Head/Face Comments normal cephallic/ Atraumatic, negative spurling's maneuver Head/Face Normal Facial features - Normal. Skull - Normal. Hair and scalp - Normal. Respiratory Normal Cough - Absent. Effort - Normal. Skin * Detailed inspection - Visual lesions: none. Skin Comments other than as noted otherwise below in extremity exam Skin Normal Palpation/texture - Normal. Nails - Normal. Hair - Normal. Psychiatric Normal Orientation - Oriented to time, place, person & situation. Involved Lower Extremity: ROM: 0-130. Quad tone good. Calf supple and non tender. Minimal effusion. Incisions healing nicely. No erythema. No drainage. Distally neurovascularly intact with 2+ DP pulse and full sensation in the DP/SP/Tibial nerve distribution. Assessment: ICD-10-CM 1. S/P left knee arthroscopy Z98.890 Plan: She is doing well, continue PT exercises to work on ROM, strengthening, and swelling control. She will use NSAIDS as needed for pain control. If She has any questions or issues She will contact the office. Follow up with us as needed. Follow up as needed. Call with any questions or concerns. documented in this encounter* Luis Manuel Mccrary PA-C - 05/12/2020 3:10 PM EDT URGENT CARE ENCOUNTER CHIEF COMPLAINT Ear Pain (left ear pain and fullness) SLY Avilez is a 60 y.o. female who presents today for sensation of fullness and some pain to the left ear. Gone on for about 1 week. Patient denies: Fever, sore throat, loss of hearing, trauma, sinus drainage, cough, neck pain, tooth pain. REVIEW OF SYSTEMS Review of Systems Constitutional: Negative for chills, diaphoresis and fever. HENT: Positive for ear pain. Negative for ear discharge, hearing loss, mouth sores, rhinorrhea, sinus pain and sore throat. Respiratory: Negative for cough, shortness of breath and wheezing. Cardiovascular: Negative for chest pain. Gastrointestinal: Negative for abdominal pain, nausea and vomiting. Genitourinary: Negative for difficulty urinating and dysuria. Musculoskeletal: Negative for myalgias and neck pain. Skin: Negative for color change and rash. Neurological: Negative for dizziness, speech difficulty, weakness, light- headedness and headaches. Hematological: Negative for adenopathy. PAST MEDICAL HISTORY Past Medical History: Diagnosis Date Arrhythmia heart murmer and RBB Known health problems: none SURGICAL HISTORY Past Surgical History: Procedure Laterality Date ARTHROSCOPY KNEE W/ MENISCECTOMY Left 03/14/2019 Laterality: Left; Surgeon: Silvia Wolf MD; Location: [facility] COLONOSCOPY DIAGNOSTIC 2014 APPENDECTOMY 1979 OOPHORECTOMY LAPAROSCOPIC Left 1975 CURRENT MEDICATIONS Current Outpatient Medications Medication Sig Dispense Refill calcium-vitamin D 500-200 MG-UNIT Tab tablet Take by mouth daily. MELATONIN PO Take by mouth. hydroCODone-acetaminophen 5-325 MG Tab tablet 1-2 tabs PO q4-6 hours PRN pain 40 tablet 0 [id number] [id number] 4 drops in right ear 3 times daily. (Patient not taking: Reported on 05/12/2020) 1 Bottle 0 No current facility-administered medications for this visit. ALLERGIES Allergies Allergen Reactions Sulfamethoxazole-Trimethoprim Demerol Hcl [Meperidine] Sulfa Antibiotics FAMILY HISTORY Family History Problem Relation Age of Onset Cancer- Other Mother Heart Disease - Other Father Cancer- Other Father SOCIAL HISTORY Social History Socioeconomic History Marital status: Spouse name: Not on file Number of children: Not on file Years of education: Not on file Highest education level: Not on file Occupational History Not on file Tobacco Use Smoking status: Never Smoker Smokeless tobacco: Never Used Substance and Sexual Activity Alcohol use: Never Drug use: Never Sexual activity: Not on file Other Topics Concern Service Not Asked Blood Transfusions Not Asked Caffeine Concern Not Asked Occupational Exposure Not Asked Hobby Hazards Not Asked Sleep Concern Not Asked Stress Concern Not Asked Weight Concern Not Asked Special Diet Not Asked Back Care Not Asked Exercise Not Asked Bike Helmet Not Asked Seat Belt Not Asked Domestic Violence No Social History Narrative Not on file Social Determinants of Health Financial Resource Strain: Difficulty of Paying Living Expenses: Not on file Food Insecurity: Worried About Running Out of Food in the Last Year: Not on file Ran Out of Food in the Last Year: Not on file Transportation Needs: Lack of Transportation (Medical): Not on file Lack of Transportation (Non-Medical): Not on file Physical Activity: Days of Exercise per Week: Not on file Minutes of Exercise per Session: Not on file Stress: Feeling of Stress : Not on file Social Connections: Frequency of Communication with Friends and Family: Not on file Frequency of Social Gatherings with Friends and Family: Not on file Attends Mormonism Services: Not on file Active Member of Clubs or Organizations: Not on file Attends Club or Organization Meetings: Not on file Marital Status: Not on file Intimate Partner Violence: Fear of Current or Ex-Partner: Not on file Emotionally Abused: Not on file Physically Abused: Not on file Sexually Abused: Not on file PHYSICAL EXAM BP 154/71 (BP Location: Right arm, BP Position: Sitting) Pulse 71 Temp 99.4 F (37.4 C) (Temporal) Resp 16 Ht 1.727 m (5' 8) Wt 76.7 kg (169 lb) SpO2 99% BMI 25.70 kg/m Smoking StatusNever Smoker Physical Exam Vitals and nursing note reviewed. Constitutional: General: She is not in acute distress. Appearance: Normal appearance. She is normal weight. She is not ill-appearing, toxic-appearing or diaphoretic. HENT: Head: Normocephalic and atraumatic. Right Ear: Tympanic membrane, ear canal and external ear normal. Left Ear: Tympanic membrane and external ear normal. There is impacted cerumen. Mouth/Throat: Mouth: Mucous membranes are moist. Pharynx: No oropharyngeal exudate or posterior oropharyngeal erythema. Comments: No gum edema or eryth. Eyes: Conjunctiva/sclera: Conjunctivae normal. Cardiovascular: Rate and Rhythm: Normal rate and regular rhythm. Heart sounds: Normal heart sounds. No murmur. Pulmonary: Effort: Pulmonary effort is normal. No respiratory distress. Breath sounds: Normal breath sounds. No wheezing. Musculoskeletal: General: No swelling, tenderness or deformity. Normal range of motion. Cervical back: Normal range of motion and neck supple. No muscular tenderness. Lymphadenopathy: Cervical: No cervical adenopathy. Skin: General: Skin is warm and dry. Findings: No erythema or rash. Neurological: General: No focal deficit present. Mental Status: She is alert and oriented to person, place, and time. Motor: No weakness. Psychiatric: Mood and Affect: Mood normal. Behavior: Behavior normal. Thought Content: Thought content normal. DIAGNOSIS, ASSESSMENT AND PLAN: Orders/Results: Maurice was seen today for ear pain. Diagnoses and all orders for this visit: Impacted cerumen of left ear - MO REMOVAL IMPACTED CERUMEN IRRIGATION/LVG UNILAT the medical biller has successfully irrigated left ear with hydroperoxide and water. Patient hasher hearing is normal and no discomfort now. Her TM appears normal status post procedure. She has no irregularity to the ear canal or infection. Patient discharged home reassurance given. Patient asked what causes cerumen impactions, we went over that and she notes that she is guilty of using Q-tips. Radiographic Imaging and labs: No orders to display No results found for this or any previous visit (from the past 1 hour(s)). Luis Manuel Mccrary PA-C 05/12/2020 documented in this encounter Assessments Diagnosis Acute pain of left knee- Primary Other specified joint disorders, unspecified joint Diagnosis Complex tear of medial meniscus of left knee as current injury, subsequent encounter- Primary Diagnosis Acute otitis externa of right ear, unspecified type- Primary Tear of medial meniscus of left knee, current, sequela Preoperative examination Preoperative examination, unspecified Routine general medical examination at a health care facility Diagnosis Acute medial meniscus tear of left knee, initial encounter- Primary Diagnosis S/P left knee arthroscopy- Primary Other postprocedural status Diagnosis S/P left knee arthroscopy- Primary Other postprocedural status Diagnosis S/P left knee arthroscopy Other postprocedural status Diagnosis Other specified joint disorders, unspecified joint Diagnosis Impacted cerumen of left ear- Primary Impacted cerumen Instructions * Patient Instructions* Alexis Foreman PA - 03/07/2019 8:45 AM EST 1. Get routine labs done. 2. Stable for surgery based on H&P in office. 3. Take topical ear drops until gone. documented in this encounter Discharge Instructions * Attachments The following attachments cannot be sent through Care Everywhere. 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) May 21, 2024 12: 45pm Reason for Visit Admit Date Atrophic vaginitis May 21, 2024 12: 45pm Encounter for routine gynecological exam ination May 21, 2024 12:45pm Family History No Family History Records Found Relationship Condition Age at Onset Recorded Date/T vito mother Malignant neoplasm Unknown father Malignant neoplasm Unknown Summary Purpose Advance Directives No Advanced Directives Records FoundNo Advanced Directives Records FoundNo Advanced Directives Records FoundNo Advanced Directives Records Found Additional Source Comments Reason for Visit (unrecogniz ed section and content) Reason Comments New Patient Left knee pain and s welling ongoing for 2 months. NKI Reason Comments MRI Results Follow-up Reason Comments Pre-operative Consultation Reason Comments Knee Pain Left Knee. MRI compl eted on 01-15-2019. States she injured her knee in October, was playing volleyball on and uneven surface and the knee twisted. States the pain has gotten worser of time, no injections or therapy have been completed. Status Reason Specialty Diagnoses / Procedures Referred By Contact Referred To Contact New Request Orthopaedics Diagnoses Complex tear of medial meniscus of left knee as current injury, subsequent encounter Sedrick Royal DO [address] [id number] Silvia Wolf MD [address] [place] [address] Status Reason Specialty Diagnoses / Procedures Referre d By Contact Referred To Contact Diagnoses Tear of medial meniscus of left knee, current, unspecified tear type, initial encounter Tear of medial meniscus of left knee, current, unspecified tear type, initial encounter [S83.242A] Procedures MO ARTHRS KNE SURG W/MENISCECTOMY MED/LAT W/SHVG ARTHROSCOPY KNEE W/ MENISCECTOMY Silvia Wolf MD [address] [place], [place] [id number] Reason Comments Post Op Visit 15 days s/p left kne e arthroscopy with meniscectomy. The knee is feeling good, states the knee feels tight. Int herapy 3 days a week which is going well suture removed by nursing. Reason Comments Post Op Visit 6 weeks s/p left kne e arthroscopy with meniscectomy. The knee is feeling tight, no pain and is feeling good today. In therapy 2-3 days a week which will end this week. Status Reason Specialty Diagnoses / Procedures Referred By Contact Referred To Contact Closed Magnetic Resonan ce Imaging Diagnoses Other specified joint disorders, unspecified joint Procedures MRI KNEE LEFT WITHOUT CONTRAST MO MRI LOWER EXTREM JT, W/O CONTRAST Sedrick Royal, DO [address] [place] [address] [facility] [address] [place] [phone] Reason Comments Ear Pain left ear pain and fu llness Reason Comments Knee Pain Right knee - Xrays c ompleted in office today. Patient states that she has been having pain in the knee since January of 2023. Patients does not recall any specific injury but is physically active. Patients states that she has been having some intermittent swelling that has been improving. Pain is worse when ambulating down stairs. Specialty Diagnoses / Procedures Referred By Melania davis Referred To Contact Diagnoses Sprain of right knee, unspecified ligament, initial encounter Procedures MRI KNEE RIGHT WITHOUT CONTRAST MO MRI LOWER EXTREM JT, W/O CONTRAST Hi Turner, [facility]-GROUNDS AND NURSERY SPECIALIST [address] [place] [address] Referral ID Status Reason Start Date Expiration Date Visits Re quested Visits Authorized [id number] Closed 03/10/2023 04/03/2024 1 1 Reason Comments MRI Results Right knee MRI compl eted 04/12/23. Here to discuss next steps. Reason Comments Pre-op Exam Right knee arthrosco py, partial medial meniscectomy, and other interventions as needed Specialty Diagnoses / Procedures Referred By Melania davis Referred To Contact Diagnoses Tear of medial meniscus of right knee, current, unspecified tear type, initial encounter Primary osteoarthritis of right knee Tear of medial meniscus of right knee, current, unspecified tear type, initial encounter [S83.241A] Primary osteoarthritis of right knee [M17.11] Procedures MO ARTHRS KNE SURG W/MENISCECTOMY MED/LAT W/SHVG ARTHROSCOPY KNEE W/ MENISCECTOMY Silvia Wolf MD [address] [place] [address] Referral ID Status Reason Start Date Expiration Date Visits Re quested Visits Authorized [id number] 05/26/2023 1 1 Reason Comments Post Op Visit 2 week PO Follow-up right knee scope. Patient reports is doing well, pain level is good, feels like more swelling than last time. Admits is bad at resting, but is elevating and icing correctly. Reason Comments Post Op Visit 7 week PO Follow-up right knee scope. Patient reports she is doing well but has some lateral knee swelling that has been improving. No longer in PT. Reason Comments Earache Itching and fullness in left ear for the past few weeks. Care Teams (unrecognized sec tion and content) Team Status: Active Member Role Status Dates GEOVANNI PAEZ Family Provider Active Dr. Geovanni Paez MD Primary Care Provider Active Team Status: Inactive Member Role Status Dates Dr. Geovanni Paez MD Primary Care Provider, Referring Provider Active Graciela Rebollar CARPENTER PACKING, CARPENTER PACKING-C Attending Provider Active Team Status: Inactive Member Role Status Dates Dr. Geovanni Paez MD Primary Care Provider Active Graciela Rebollar CARPENTER PACKING, CARPENTER PACKING-C Attending Provider, Referring Provider Active Team Status: Inactive Member Role Status Dates Dr. Geovanni Paez MD Primary Care Provider Active Dr. Aster Alvarez MD Attending Provider, Referr ing Provider Active Weaving Instructor Relationship Specialty Start Date End Date Alexis Foreman PA [address] [place] [phone] PCP - General Physician Distillery Worker 03/14/19 Weaving Instructor Relationship Specialty Start Date End Date Alexis Foreman PA [address] [place] [phone] PCP - General Physician Distillery Worker 03/14/19 Weaving Instructor Relationship Specialty Start Date End Date Fely Ba PA [address] [place] [phone] PCP - General Physician Distillery Worker 04/24/23 Weaving Instructor Relationship Specialty Start Date End Date Fely Ba PA [address] [phone] PCP - General Physician Distillery Worker 04/24/23 Weaving Instructor Relationship Specialty Start Date End Date Fely Ba PA [address] [phone] PCP - General Physician Distillery Worker 04/24/23 Weaving Instructor Relationship Specialty Start Date End Date Fely Ba PA [address] [phone] PCP - General Physician Distillery Worker 04/24/23 Weaving Instructor Relationship Specialty Start Date End Date Fely Ba PA-C [address] [phone] PCP - General Internal Medicine 03/06/24 Team Status: Active Member Role Status Dates Dr. Fely Ba PA-C Primary Care Provider Active Team Status: Inactive Member Role Status Dates Graciela Rebollar CARPENTER PACKING, CARPENTER PACKING-C Attending Provider Active Start: May 21, 2024 End: May 21, 2024 Graciela Rebollar NP [employer] P[employer]ING-C Referring Provider Active Start: May 21, 2024 End: May 21, 2024 Dr. Fely Ba PA-C Primary Care Provider Active Start: May 21, 2024 End: May 21, 2024 Team Status: Inactive Member Role Status Dates Dr. Geovanni Paez MD Referring Provider Active Start: May 21, 2024 End: May 21, 2024 Graciela Rebollar NP, [employer] Attending Provider Active Start: May 21, 2024 End: May 21, 2024 Dr. eFly Ba PA-C Primary Care Provider Active Start: May 21, 2024 End: May 21, 2024 Goals (unrecognized section and content) Goals may be documented in a n alternate sectionGoals may be documented in an alternate sectionGoals may be documented in an alternate section Continuous Active and Recently Administ ered Medications (unrecognized section and content) Medication Order 06/26/2023 06/27/2023 06/28/2023 Lactated ringers IV solution Intravenous, at 75 mL/hr, CONTINUOUS, Starting on Mon06/28/23 at 0915, Until Mon06/28/23 at 1529, Pre-op/Pre-Proc 1046 ($$New Bag$$ - Provider: JUJU Buck)1049 ($$New Bag$$ - Provider: JUJU Buck)1202 (Stopped - Provider: Erendira Gaspar RN) PRN Medication Order 06/26/2023 06/27/2023 06/28/2023 BUPivacaine (PF) (MARCAINE) 0.5 % injection (CANCELED) NEEDED, Starting on Mon06/28/23 at 1102, Until Mon06/28/23 at 1126, Intra-op/Intra-Proc 1102 (Given - Provid er: Silvia Wolf MD - Comment: given to sterile field) ceFAZolin (ANCEF) 2 g in dextrose 100 mL premix IVPB (COMPLETED) 2 g, Intravenous, Administer over 15 Minutes, ENGINEER BOOSTER AND EXHAUSTER TO PROCEDURE, 1 dose, Starting on Mon06/28/23 at 0906, Until Mon06/28/23 at 1052, Other, Pre-operative antibiotic, Pre-op/Pre-Proc 1037 ($$New Bag$$ - Provider: JUJU Buck) EPINEPHrine PF (ADRENALIN) 1 MG/ML 2 mg in Lactated ringers 5,000 mL irrigation solution (CANCELED) NEEDED, Starting on Mon06/28/23 at 1102, Until Mon06/28/23 at 1126, Intra-op/Intra-Proc 1102 (Given - Provid er: Silvia Wolf MD - Comment: used with Arthrex Machine) hydroCODone-acetaminophen (NORCO) 5-325 MG per tablet 1-2 tablet 1-2 tablet, Oral, EVERY 4 HOURS NEEDED, Starting on Mon06/28/23 at 1030, Until Mon06/28/23 at 1529, Moderate Pain, Post-op/Post-Proc Lidocaine (XYLOCAINE) 10 mg/mL injection (CANCELED) NEEDED, Starting on Mon06/28/23 at 1102, Until Mon06/28/23 at 1126, Intra-op/Intra-Proc 1102 (Given - Provid er: Silvia Wolf MD - Comment: given to sterile field) Ondansetron 4mg/2ml (ZOFRAN) injection 4 mg 4 mg, Intravenous, EVERY 4 HOURS NEEDED, Starting on Mon06/28/23 at 1030, Until Mon06/28/23 at 1529, Nausea / Vomiting, Post-op/Post-Proc INFORMATION SOURCE (unrecogn ized section and content) DATE CREATED AUTHOR 08/13/2023 [facility] DATE CREATED AUTHOR AUTHOR'S ORGANIZ ATION 08/21/2023 [facility] DATE CREATED AUTHOR AUTHOR'S ORGANIZ ATION 03/12/2024 [facility] DATE CREATED AUTHOR AUTHOR'S ORGANIZ ATION 07/30/2024 [facility] FOR RECORDS PERTAINING TO PATIENTS WHO ARE OR HAVE BEEN ENROLLED IN A CHEMICAL DEPENDENCY/SUBSTANCEABUSE PROGRAM, SOME INFORMATION MAY BE OMITTED. This clinical summary was aggregated from multiple sources. Caution should be exercised in using it in the provision of clinical care. This summary normalizes information from multiple sources, and as a consequence, information in this document may materially change the coding, format and clinical context of patient data. In addition, data may be omitted in some cases. CLINICAL DECISIONS SHOULD BE BASED ON THE PRIMARY CLINICAL RECORDS. [email or web address] provides no warranty or guarantee of the accuracy or completeness of information in this document.
[2024-08-15] MEDS: Lactated Ringers 1,000 ML 15 ML IV (06:05)
--- NOTE | 2024-08-15 06:24 | PRE.ANES_ITS ---
ASA Classification* ASA Classification ASA Classification: 2 (HTN) Assessment & Plan Anesthesia* Anesthesia Assessment Anesthesia Assessment: Discussed sedation and/or anesthesia options, risks, benefits, and alternatives with patient/parents/legal guardian/POA. Questions invited. The patient/parents/legal guardian/POA seems to understand and agrees to proceed with anesthesia plan. Reviewed the physical assessment, medical history, allergy history and patient home medications list prior to surgery/procedure/anesthetic and documented any changes. Performed airway and anesthesia risk assessments. 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 When Was Last Pacemaker Check QUESTION #4 FULL TEXT: You/Your Family Experience fever (hyperthermia) with Anesthesia Last Oral Intake Last Oral intake: Last Oral Intake NPO since 02:00 08/15/24 05:55 Meds taken in AM with sips of water? 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 Female Yes 08/13/24 13:58 HX of Motion Sickness No 08/13/24 13:58 HX of N/V After Surgery No 08/13/24 13:58 Non-Smoker Yes 08/13/24 13:58 Duration of Surgery greater No 08/13/24 13:58 than 60 minutes Number of Risk Factors 2 08/13/24 13:58 PONV Score Moderate Risk 08/13/24 13:58 Height & Weight Height & Weight: Anesthesia: Height & Weight Height 5 ft 8 in 08/15/24 05:55 Weight: 79.4 kg 08/15/24 05:55 Body Mass Index (BMI) 26.6 08/15/24 05:55 Respiratory Assessment Respiratory Assessment - coating machine operator: Respiratory Tract Infection Hx - coating machine operator Hx Respiratory Tract Infection No 08/13/24 13:58 STOP Sleep Apnea STOP Sleep Apnea - coating machine operator: STOP Sleep Apnea - coating machine operator Hx Hypertension Yes: CONTROLLED WITH MEDS 08/13/24 13:58 Hx Sleep Apnea No 08/13/24 13:58 CPAP BIPAP Do you snore loudly (louder No 08/13/24 13:58 than talking or can be heard Do you often feel tired/ No 08/13/24 13:58 fatigued/ sleepy during daytime? Has anyone observed you stop No 08/13/24 13:58 breathing during sleep? STOP Results Negative 08/13/24 13:58 QUESTION #5 FULL TEXT : Do you snore loudly (louder than talking or can be heard through closed doors)? 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 Specify any problems Hx of Preganancy in last 3 No 08/13/24 13:58 Months Nurse Filling Out Transfusion [email or web address] 08/13/24 13:58 & Questions: Date: 08/13/24 08/13/24 13:58 Time: 14:02 08/13/24 13:58 Patient unable to answer at this time (ie. confused, unrespo /Reproduction History /Reproductive History - coating machine operator: /Reproductive Hx- coating machine operator Hx Now No 08/13/24 13:58 Gestational Age (in weeks): EDC: Hx Hx Para Hx Section SAB No 08/13/24 13:58 Active Medications Active Medications: Current Medications Generic Name Dose Route Start Last Admin Trade Name Freq PRN Reason Stop Dose Admin Lactated Ringer's 1,000 mls @ 15 mls/hr 08/15/24 05:45 08/15/24 06:05 IV 15 mls/hr .Q48H VIC Administration PFSH Medical History (Updated 08/13/24 @ 14:05 by Shady Olivia) History of stress test RBBB Heart murmur History of abnormal cervical Pap smear Home Medications ?Medication ?Instructions ?Recorded ?Last Taken ?Type elderberry fruit 350 mg capsule 700 mg PO DAILY 08/14/24 History lactobacillus combination no.9 4 4,000 mmu cells PO DA MINI 04/13/22 08/13/24 History billion cell capsule (Adult 50 Plus Probiotic) estradiol 0.01% (0.1 mg/gram) See Rx Instructions vagi nal 05/21/24 08/11/24 Rx vaginal cream (Estrace) .COMPLEX #42.5 grams losartan 50 mg tablet 50 mg PO QHS 05/21/24 History ascorbic acid (vitamin C) 250 mg 500 mg PO QDAY 08/14/24 History tablet Allergy/AdvReac Type Severity Reaction Status Date / Time meperidine (From Demerol) AdvReac hives Verified 08/15/24 05:54 Sulfa (Sulfonamide AdvReac hives Verified 08/15/24 05:54 Antibiotics) Family History Mother Cancer pancreatic Father Cancer lymphoma Surgical History History of tonsillectomy Hx of appendectomy Hx of unilateral salpingectomy History of left oophorectomy Social History household members: spouse number of children: 3 current occupational status: retired history of recent travel: Yes sexually active: Yes Smoking Status: Never smoker alcohol intake: never substance use type: does not use what type of physical activity do you participate in: walking and bicycling seatbelt use: always do you feel safe at home: Yes additional social history: -mary Review of Systems (Anesthesia) ROS Narrative System reviewed and no additional complaints, except as documented. Physical Exam Const alert, oriented x3 and average body habitus Resp normal respiratory effort, normal air movement and clear to auscultation bilaterally Cardio regular rate, regular rhythm, no murmurs and diaphoretic
--- NOTE | 2024-08-15 06:30 | COLBX_PTH ---
PATIENT: LIZZETTE AVILEZ LOC: EN U#:[id number] AGE/SX: 64/F ROOM: RE08/15/[address]: Dr. Kalia Santos DO : 1960 BED: DIS: 08/15/2024 SPEC #: [id number] RECD: 08/15/24 10:47 STATUS: MATTY ALEXANDRO #: [id number] REBECA: 08/15/24 06:[address]: Kalia Santos DEPT: SURGICAL PATHOLOGY RECD BY: Michael Milton ENTERED: 08/15/24 12:09 SP TYPE: COLON BX OTHR DR: BENI ReinosoC Tissues: A - COLON BIOPSY B - Sigmoid colon biopsy C - Rectum, NOS Procedures: Surgery Specimen Level IV HEADER OPERATION: Colonoscopy and polypectomy PRE-OP DIAGNOSIS: History of colon polyps TISSUE SUBMITTED: A- Hepatic flexure polyp, B- Sigmoid colon polyp, C- Rectal polyp MICROSCOPIC DIAGNOSIS A. Colon, hepatic flexure, polyp, biopsy: * Sessile serrated lesion. B. Colon, sigmoid, polyp, biopsy: * Tubular adenoma. C. Rectum, polyp, biopsy: * Tubular adenoma. MICROSCOPIC DESCRIPTION Slides are reviewed. GROSS DESCRIPTION A. Received in fixative is one container labeled with the patient's name and designated Hepatic flexure polyp. The specimen consists of three irregular fragments of light sahu soft tissue that in aggregate measure 0.1 to 0.4 cm. The specimen is totally submitted in one cassette. B. Received in fixative is one container labeled with the patient's name and designated Sigmoid colon polyp. The specimen consists of one irregular fragment of light sahu soft tissue that measures 0.4 cm. The specimen is totally submitted in one cassette. C. Received in fixative is one container labeled with the patient's name and designated Rectal polyp. The specimen consists of one irregular fragment of light sahu soft tissue that measures 0.5 cm. The specimen is totally submitted in one cassette. JARVIS/ 08/15/2024 CPT:68127q1
--- NOTE | 2024-08-15 06:56 | PCM.HP.STD ---
HPI - General General Date of Admission: 08/15/24 Date of Service: 08/15/24 Chief Complaint: h/o polyps HPI Narrative LIZZETTE AVILEZ, is a 64 F who presents to have a colonoscopy. Her las colonoscopy was in 2019 at [facility]. She uses probiotics on a daily bases to help with her bowel movements. *BGI established 4.8.25 pt report she is due for a colonoscopy; last scope was 5-6 years ago. Pt reports that since going through menopause she has had irregular bowel movements, pt reports a bm every other day or will sometimes skip two days. Pt reports abdominal cramping began last week. Cosigner Signature: Date (if applicable) CC: ~ [facility] Medical History History of stress test RBBB Heart murmur History of abnormal cervical Pap smear Home Medications ?Medication ?Instructions ?Recorded ?Last Taken ?Type elderberry fruit 350 mg capsule 700 mg PO DAILY 04/13/22 08/14/24 History lactobacillus combination no.9 4 4,000 mmu cells PO DAILY 04/13/22 08/13/24 History billion cell capsule (Adult 50 Plus Probiotic) estradiol 0.01% (0.1 mg/gram) See Rx Instructions vaginal 05/21/24 08/11/24 Rx vaginal cream (Estrace) .COMPLEX #42.5 grams losartan 50 mg tablet 50 mg PO QHS 05/21/24 08/14/24 History ascorbic acid (vitamin C) 250 mg 500 mg PO QDAY 06/04/24 08/14/24 History tablet Allergy/AdvReac Type Severity Reaction Status Date / Time meperidine (From Demerol) AdvReac hives Verified 08/15/24 05:54 Sulfa (Sulfonamide AdvReac hives Verified 08/15/24 05:54 Antibiotics) Family History Mother Cancer pancreatic Father Cancer lymphoma Surgical History History of tonsillectomy Hx of appendectomy Hx of unilateral salpingectomy History of left oophorectomy Social History household members: spouse number of children: 3 current occupational status: retired history of recent travel: Yes sexually active: Yes Smoking Status: Never smoker alcohol intake: never substance use type: does not use what type of physical activity do you participate in: walking and bicycling seatbelt use: always do you feel safe at home: Yes additional social history: -mary HWANG Constitutional Constitutional: Denies fatigue, fever(s), poor appetite, weight gain or weight loss Gastrointestinal Gastrointestinal: Denies belching, bloating, change in bowel habits, change in stool character, chewing difficulty, coffee ground emesis, constipation, cramping, diarrhea, dyspepsia, dysphagia, early satiety, excessive flatus, fecal incontinence, heartburn, hematemesis, hematochezia, hemorrhoids, loose stools, melena, nausea, odynophagia, rectal bleeding, tenesmus, vomiting or weight changes Vital Signs Vital Signs Vital Signs: 08/15/24 05:55 08/15/24 05:55 08/15/24 06:26 Temperature 98.0 F 98.0 F Temperature Source Temporal Pulse Rate 69 69 Respiratory Rate 18 18 Respiratory Pattern Normal Blood Pressure 143/67 H 143/67 H Blood Pressure Mean 92 Blood Pressure Source Monitor Blood Pressure Position Semi-Fowlers Blood Pressure Location Left Arm Pulse Ox 100 100 Oxygen Delivery Method Room Air Room Air Weight Weight: 175 lb 0.752 oz Body Mass Index (BMI) 26.6 Physical Exam Const alert, oriented x3, no apparent distress and healthy appearing General Appearance: cooperative GI normal to inspection, nondistended, normoactive bowel sounds, soft to palpation, non-tender and non-distended Percussion: normal to percussion Rectal Exam: deferred Assessment & Plan Assessment/Plan (1) Personal history of colonic polyps: PLAN: Assessment and Plan Assessment and Plan (1) Personal history of colonic polyps: Status: Acute Plan: She will undergo a surveillance colonoscopy. She was explained, alternatives, benefits and risk to the procedure. Including and not withstanding bleeding, infection, sepsis, perforation, need for emergent . She have an ASA of 3.
--- NOTE | 2024-08-15 07:32 | PCM.POST.ANE ---
Anesthesia: Postop Eval I Current Vital Signs Temperature: 97.4 F Pulse Rate: 70 Blood Pressure: 102/50 Respiratory Rate: 16 Pulse Ox: 100 Oxygen Delivery Method: Room Air Assessment Airway patent: Yes Spontaneous unlabored respirations: Yes Mental status: Awake and Calm nausea: No Vomiting: No Anesthesia Complication: No Fluid Hydration Crystalloid volume administer (ml): 600 Total IV fluid infused: 600 Progress Note Anesthesia document: Postop Eval 1 completed: Yes
--- NOTE | 2024-08-15 07:35 | OP.COLON_ITS ---
Patient Name: Maurice Cardenas Procedure Date: 08/15/2024 6:17 AM Date of : 1960 Age: 64 Procedure: Colonoscopy Indications: Screening for colorectal malignant neoplasm Providers: Kalia Santos DO Referring MD: Ronny Godoy Do Medicines: Monitored Anesthesia Care Patient Profile: This is a 64 year old female. Refer to note in patient chart for documentation of history and physical. Last Colonoscopy: 5 years ago. Complications: No immediate complications. Procedure: Pre-Anesthesia Assessment: - Prior to the procedure, a History and Physical was performed, and patient medications and allergies were reviewed. The patient is competent. The risks and benefits of the procedure and the sedation options and risks were discussed with the patient. All questions were answered and informed consent was obtained. Patient identification and proposed procedure were verified by the physician in the pre-procedure area. Mental Status Examination: alert and oriented. Airway Examination: normal oropharyngeal airway and neck mobility. Respiratory Examination: clear to auscultation. CV Examination: normal. Prophylactic Antibiotics: The patient does not require prophylactic antibiotics. Prior Anticoagulants: The patient has taken no anticoagulant or antiplatelet agents except for NSAID medication. ASA Grade Assessment: II - A patient with mild systemic disease. After reviewing the risks and benefits, the patient was deemed in satisfactory condition to undergo the procedure. The anesthesia plan was to use monitored anesthesia care (MAC). Immediately prior to administration of medications, the patient was re-assessed for adequacy to receive sedatives. The heart rate, respiratory rate, oxygen saturations, blood pressure, adequacy of pulmonary ventilation, and response to care were monitored throughout the procedure. The physical status of the patient was re-assessed after the procedure. After I obtained informed consent, the scope was passed under direct vision. Throughout the procedure, the patient's blood pressure, pulse, and oxygen saturations were monitored continuously. The Colonoscope was introduced through the anus and advanced to the cecum, identified by appendiceal orifice and ileocecal valve. The colonoscopy was performed without difficulty. The patient tolerated the procedure well. The quality of the bowel preparation was adequate. The ileocecal valve, appendiceal orifice, and rectum were photographed. Scope In: 7:06:12 AM Scope Withdrawal Time 0 hours 8 minutes 31 seconds Scope Out: 7:25:40 AM Total Procedure Duration Time 0 hours 19 minutes 28 seconds Findings: The perianal and digital rectal examinations were normal. Three sessile polyps were found in the rectum, sigmoid colon and splenic flexure. The polyps were 7 mm in size. These polyps were removed with a jumbo cold forceps. Resection and retrieval were complete. Verification of patient identification for the specimen was done. Estimated blood loss was minimal. The exam was otherwise without abnormality on direct and retroflexion views. Impression: - Three 7 mm polyps in the rectum, in the sigmoid colon and at the splenic flexure, removed with a jumbo cold forceps. Resected and retrieved. - The examination was otherwise normal on direct and retroflexion views. Recommendation: - Discharge patient to home. - Resume previous diet. - Continue present medications. - Await pathology results. - Repeat colonoscopy in 5 years for surveillance. Procedure Code(s): --- Professional --- 15356, Colonoscopy, flexible; with biopsy, single or multiple CPT copyright 2021 [employer]. All rights reserved. The codes documented in this report are preliminary and upon manager organizational review may be revised to meet current compliance requirements. Kalia Santos DO 08/15/2024 7:34:24 AM This report has been signed electronically. Number of Addenda: 0 Note Initiated On: 08/15/2024 6:17 AM
--- NOTE | 2024-08-15 07:35 | OP.CCLET_ITS ---
08/15/2024 Ronny Godoy Do Re : Colonoscopy procedure for Maurice Cardenas Dear Jayne This procedure was performed on July. My impressions and recommendations are as follows: Impressions : - Three 7 mm polyps in the rectum, in the sigmoid colon and at the splenic flexure, removed with a jumbo cold forceps. Resected and retrieved. - The examination was otherwise normal on direct and retroflexion views. Recommendations : - Discharge patient to home. - Resume previous diet. - Continue present medications. - Await pathology results. - Repeat colonoscopy in 5 years for surveillance. My findings are described in the full procedure note, which is enclosed. If I can be of further assistance, please feel free to contact me at . Sincerely, Kalia Santos, 08/15/2024 7:34:24 AM This report has been signed electronically.
--- NOTE | 2024-08-15 11:27 | PCM.POSTANE2 ---
Anesthesia Postop Eval I Sum Postop Eval Completion status Anesthesia document: Postop Eval 1 completed: Yes Anesthesia Postop Eval I Summary Anesthesia Postop Eval I Summary: Anesthesia Postop Eval I: Assessment Summary Airway patent Yes 08/15/24 07:33 [email or web address] Spontaneous unlabored Yes 08/15/24 07:33 [email or web address] respirations Mental status Awake,Calm 08/15/24 07:33 [email or web address] nausea No 08/15/24 07:33 [email or web address] Vomiting No 08/15/24 07:33 [email or web address] Anesthesia Postop Eval I: Fluid Summary Crystalloid volume administer 600 08/15/24 07:33 [email or web address] (ml) Colloids volume administered ( ml) Blood Product volume administered (ml) Total IV fluid infused 600 08/15/24 07:33 [email or web address] Anesthesia Postop Eval I: Summary Notes Anesthesia Complication No 08/15/24 07:33 [email or web address] Anesthesia Complication Comment: Post-operative progress note Anesthesia: Postop Eval II Evaluation Mental status: Awake Pain Level: 0 nausea: No Vomiting: No Complications Anesthesia Complication: No
== END 2024-08-15 08:10 | disposition home or self-care (01) ==
LOC: EN 05:25 → AC 06:05
PROVIDERS: PCP Physician Assistant; Referring Provider Physician Assistant; Visit Provider Internal Medicine Gastroenterology
PROC: 0DJD8ZZ Inspection of Lower Intestinal Tract, Via Natural or Artificial Opening Endoscopic (ICD-10-PCS; CPT 45378; principal; 2024-08-15 06:25)
DX: Z12.11 Encounter for screening for malignant neoplasm of colon (principal); Z78.0 Asymptomatic menopausal state; Z86.0100 Personal history of colon polyps, unspecified; Z79.899 Other long term (current) drug therapy; I10 Essential (primary) hypertension; D12.5 Benign neoplasm of sigmoid colon; D12.7 Benign neoplasm of rectosigmoid junction
CPT/HCPCS: 45380; 88305; J2405